=== PATIENT | male | born 1945 | race Caucasian/White ===

== ENCOUNTER 2016-10-16 17:30 | Emergency (ER) | payer MEDICARE, OTHER ==
--- NOTE | 2016-10-16 19:30 | EDM.PDOC ---
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 No history of cardiovascular disease or cerebrovascular disease, last seen in emergency for vertigo over a year ago, no further episodes of that. Was well today has had no recent illness or infection At work he was working on the computer at 3:30 PM when he suddenly became aware that he was having trouble using his left hand. He had to think consciously about pressing keys on the computer such as the tab over the escape T to get his left hand work. Once he was concentrating on he had no problem getting his hand to work. 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 No weakness in the hand, he did not drop anything, there is no numbness. He then noticed that there were some tingling in all the fingers including the thumb. He is right-handed About half an hour later he was on the telephone and he felt that his speech slurring. This lasted about half an hour.however the person he was talking to on the phone didn't say anything. There is no other conversations on the phone or with individuals that he could compare to. However, He "just didn't feel right" but had no nausea or vomiting no headache no vision or hearing changes and did not have any trouble walking. At [address] himself home about 20 minutes. His did not notice anything different in his appearance or his movements. His speech was back to normal by that time and the tingling was just very slight in his hand. He no longer had to think in order to make his hand move. There is no difficulty finding words, no headache, no balance problems, no dizziness. besides his single episode of vertigo last year, he has a history of hypertension for which she is treated and normally under control, and migraines that will present with visual scotomata as part of the aura. If this happens he' ll take aspirin and then he will get a headache. - Related Data Allergies Allergy/AdvReac Type Severity Reaction Status Date / Time No Known Allergies Allergy Verified 04/11/15 22:36 Home Meds: Home Meds Lisinopril/Hydrochlorothiazide [Lisinopril-Hctz 20-25 mg Tab] 0.5 tab PO QAM [History] Omeprazole 20 mg PO QAM 02/24/14 [History] Aspirin 162.5 mg PO QAM 04/01/14 [History] Ranitidine HCl [Zantac] 300 mg PO BEDTIME PRN 03/29/15 [History] Past Medical History HEENT History: Reports: Cataract, Impaired Vision Cardiovascular History: Reports: Hypertension Respiratory History: Reports: None Gastrointestinal History: Reports: GERD Musculoskeletal History: Reports: Fracture Other Musculoskeletal History: craked rib Neurological History: Reports: Seizure - Infectious Disease History Infectious Disease History: Reports: Chicken Pox, Measles - Past Surgical History HEENT Surgical History: Reports: Cataract Surgery Cardiovascular Surgical History: Reports: None Respiratory Surgical History: Reports: None GI Surgical History: Reports: Appendectomy, Cholecystectomy, Colonoscopy Social & Family History - Tobacco Use Smoking Status *Q: Former Smoker Years of Tobacco use: 50 Used Tobacco, but Quit: Yes Month Tobacco Last Used: 2013 Second Hand Smoke Exposure: No - Caffeine Use Caffeine Use: Reports: Coffee, Soda - Alcohol Use Days Per Week of Alcohol Use: 0 - Recreational Drug Use Recreational Drug Use: No - Living Situation & Occupation Living situation: Reports: , with Spouse Occupation: Employed ED ROS GENERAL - Review of Systems Review Of Systems: See Below Constitutional: Reports: Malaise. Denies: Fever, Chills, Weakness, Fatigue, Diaphoresis (I) HEENT: Reports: No Symptoms. Denies: Hearing Loss, Rhinitis, Vision Change Respiratory: Reports: No Symptoms Cardiovascular: Reports: No Symptoms Endocrine: Reports: No Symptoms GI/Abdominal: Reports: No Symptoms : Reports: No Symptoms Musculoskeletal: Reports: No Symptoms Skin: Reports: No Symptoms Neurological: Reports: Tingling (left hand), Trouble Speaking, Change in Speech. Denies: Confusion, Dizziness, Headache, Numbness, Seizure, Syncope, Tremors, Difficulty Walking, Weakness, Gait Disturbance Psychiatric: Reports: No Symptoms Hematologic/Lymphatic: Reports: No Symptoms Immunologic: Reports: No Symptoms ED EXAM, NEURO - Physical Exam Exam: See Below Exam Limited By: No Limitations General Appearance: Alert, No Apparent Distress Eye Exam: Bilateral Eye: EOMI, Normal Inspection Ears: Normal External Exam, Normal Canal, Hearing Grossly Normal Nose: Normal Inspection, Normal Mucosa Throat/Mouth: Normal Inspection, Normal Lips, Normal Teeth, Normal Oropharynx, Normal Voice Head Exam: Atraumatic, Normocephalic Neck: Normal Inspection, Supple, Non-Tender, Full Range of Motion, Other (no carotid bruit) Respiratory/Chest: No Respiratory Distress, Lungs Clear, Normal Breath Sounds, No Accessory Muscle Use Cardiovascular: Normal Peripheral Pulses, Regular Rate, Rhythm, No Murmur GI/Abdominal: Normal Bowel Sounds, Soft, Non-Tender Neurological: Alert, Normal Mood/Affect, Normal Dorsiflexion, CN II-XII Intact, Normal Gait, No Motor/Sensory Deficits, Other (has some difficulty with tandem gait but no problem with heel walking, Romberg negative, no pronator draft, normal reflexes and strength). No: Abnormal Finger to Nose Back Exam: Normal Inspection, Full Range of Motion, Other (straight leg raising 90 bilaterally) Extremities: Normal Inspection, Normal Range of Motion Psychiatric: Normal Affect, Normal Mood Skin Exam: Warm, Dry, Intact, Normal Color, No Rash Course - Vital Signs Last Recorded V/S: Last Vital Signs Temp 35.8 C 10/16/16 19:09 Pulse 62 10/16/16 19:09 Resp 15 10/16/16 19:09 BP 144/90 H 10/16/16 20:40 Pulse Ox 99 10/16/16 19:09 - Orders/Labs/Meds Orders: Active Orders 24 hr Category Date Time Status EKG Documentation Completion [RC] ASDIRECTED Care 10/16/16 19:51 Active Head wo Cont [CT] Stat Exams 10/16/16 19:50 Taken EKG 12 Lead [EK] Routine Ther 10/16/16 19:50 Ordered Labs: Laboratory Tests 10/16/16 10/16/16 Range/Units 20:04 20:04 WBC 12.2 H (4.5-11.0) K/uL RBC 5.57 (4.30-5.90) M/uL Hgb 15.4 H (12.0-15.0) g/dL Hct 45.5 (40.0-54.0) % MCV 82 (80-98) fL MCH 28 (27-31) pg MCHC 34 (32-36) % Plt Count 315 (150-400) K/uL Sodium 142 (140-148) mmol/L Potassium 3.8 (3.6-5.2) mmol/L Chloride 104 (100-108) mmol/L Carbon Dioxide 29 (21-32) mmol/L Anion Gap 9.4 (5.0-14.0) mmol/L BUN 12 (7-18) mg/dL Creatinine 1.4 H (0.8-1.3) mg/dL Est Cr Clr Drug Dosing 50.69 mL/min Estimated GFR (MDRD) 50 L (>60) Glucose 97 (74-106) mg/dL Calcium 8.6 (8.5-10.1) mg/dL Total Bilirubin 0.6 (0.2-1.0) mg/dL AST 21 (15-37) U/L ALT 20 (12-78) U/L Alkaline Phosphatase 60 (46-116) U/L Troponin I < 0.017 (0.000-0.056) ng/mL Total Protein 7.8 (6.4-8.2) g/dL Albumin 3.9 (3.4-5.0) g/dL Globulin 3.9 H (2.3-3.5) g/dL Albumin/Globulin Ratio 1.0 L (1.2-2.2) - Re-Assessments/Exams Free Text/Narrative Re-Assessment/Exam: 10/16/16 19:59 71-year-old male with onset of tingling of the left hand and slurred speech by his report, but but nothing noted by coworkers. The hand symptoms which are just a peripheral neuropathy but the involvement of speech could suggest a central or metabolic problem. If he was having ischemic stroke he would expect difficulty with word finding rather than slurred speech. No evidence of neurological compromiseon exam. Investigations 10/16/16 21:05 EKG is normal as is glucose at 97. 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 This may have been the cause his dizziness last year. Follow-up with primary care is recommended. Consider MRI Continue half aspirin daily Return to emergency if recurrent symptoms Departure - Departure Time of Disposition: 21:06 Disposition: Home, Self-Care 01 Condition: Good Clinical Impression: Paresthesias in left hand, Difficulty with speech - Discharge Information Instructions: Paresthesia, Stroke Prevention Forms: ED Department Discharge Additional Instructions: today you had altered sensation in your left hand and some speech difficulty. No evidence of stroke on examination here CT scan does show an old stroke in the back of the left side of your brain. Please see her physician within the next week. He may decide to do further studies such as an MRI or investigation of your carotid arteries Heart exam including EKG and enzyme level was normal. Continue taking aspirin daily Return to emergency promptly if you develop loss of use of arm or leg, loss of speech or sudden loss of hearing, or severe headache - My Orders Last 24 Hours: My Active Orders 10/16/16 19:50 Head wo Cont [CT] Stat EKG 12 Lead [EK] Routine 10/16/16 19:51 EKG Documentation Completion [RC] ASDIRECTED - Assessment/Plan Last 24 Hours: My Active Orders 10/16/16 19:50 Head wo Cont [CT] Stat EKG 12 Lead [EK] Routine 10/16/16 19:51 EKG Documentation Completion [RC] ASDIRECTED
[2016-10-16 20:49] VITALS: BP 144/90
== END 2016-10-16 21:18 | disposition home or self-care (01) ==
LOC: JP.ED 17:30
DX: R20.9 Unspecified disturbances of skin sensation (principal); R47.81 Slurred speech; I10 Essential (primary) hypertension; K21.9 Gastro-esophageal reflux disease without esophagitis; Z98.49 Cataract extraction status, unspecified eye; Z90.49 Acquired absence of other specified parts of digestive tract; Z79.82 Long term (current) use of aspirin; Z87.891 Personal history of nicotine dependence; Z79.899 Other long term (current) drug therapy
CPT/HCPCS: 36415; 70450; 80053; 84484; 85027; 93005; 93010; 99285; 99285-25

== ENCOUNTER 2017-12-03 06:21 | Day surgery (SDC) | payer MEDICARE, OTHER ==
[2017-12-03] MEDS ORDERED: Lactated Ringers 1,000 ML IV SCH (07:00)
[2017-12-03] MEDS ORDERED: Midazolam 1 MG/ML 2 ML SDV ONE (07:13)
[2017-12-03] MEDS ORDERED: fentaNYL 100 MCG/2 ML SDV ONE (07:13)
[2017-12-03] MEDS ORDERED: Propofol 200 MG/20 ML SDV ONE (07:13)
--- NOTE | 2017-12-03 08:43 | OR ---
DATE OF PROCEDURE: 12/03/2017 PREOPERATIVE DIAGNOSIS: History of adenomatous colon polyps. POSTOPERATIVE DIAGNOSIS: Small colon polyps, cecum, right colon, proximal transverse colon and at 15 cm from the anal verge. PROCEDURE PERFORMED: Colonoscopy to the cecum with biopsy resection of several small colon polyps. ANESTHESIA: IV anesthesia with monitored anesthesia care. INDICATION: This 72-year-old white male is referred for a colonoscopy because of a history of colon polyps. His last colonoscopic exam he says was done 3 years ago. I counseled him for the procedure including risks and alternatives and he gave his informed consent to proceed. DESCRIPTION OF PROCEDURE: The patient was placed in the left lateral decubitus position. IV anesthesia was administered by the Anesthesia Service. Time-out was held. A rectal exam was performed, which was unremarkable. The flexible video Olympus colonoscope was introduced through his anus, up his rectum, and out his colon all the way to the cecum. Once the cecum was reached, the scope was slowly withdrawn, examining the mucosa throughout. We saw a small polyp in the cecum, which did flatten out with insufflation. It was removed with the biopsy forceps. The scope was brought back into the right colon, where another small polyp was seen and removed with the biopsy forceps. In the proximal transverse colon, another small polyp was seen, which was removed with the biopsy forceps. No other lesions were noted until we reached 15 cm from anal verge. Here, another small polyp was seen, which was removed with the biopsy forceps. The scope was brought back into the rectum, where it was retroflexed. The distal rectum appeared unremarkable. The scope was straightened and removed. He tolerated the procedure well. Dejan Gregory MD /[id number]
[2017-12-03 09:18] VITALS: BP 135/85
== END 2017-12-03 09:35 | disposition home or self-care (01) ==
LOC: JP.SDS 06:21
PROVIDERS: ATTEND Surgery
DX: Z12.11 Encounter for screening for malignant neoplasm of colon (principal); D12.2 Benign neoplasm of ascending colon; D12.0 Benign neoplasm of cecum; K63.5 Polyp of colon; I10 Essential (primary) hypertension; F17.200 Nicotine dependence, unspecified, uncomplicated; K21.9 Gastro-esophageal reflux disease without esophagitis; Z86.010 Personal history of colon polyps
CPT/HCPCS: 45380; J2250; J2704; J3010; J7120; 88305

== ENCOUNTER 2020-01-18 01:18 | Inpatient (IN) | payer MEDICARE ==
--- NOTE | 2020-01-18 04:31 | EDM.PDOC ---
ED HPI GENERAL MEDICAL PROBLEM - General Chief Complaint: Back Pain or Injury Stated Complaint: BACK PAIN Time Seen by Provider: 01/18/20 01:40 Source of Information: Reports: Patient, Family History Limitations: Reports: No Limitations - History of Present Illness INITIAL COMMENTS - FREE TEXT/NARRATIVE: 4-year-old male comes in with his from home because well in bed tonight he noted significant muscle spasm and pain in his low back. Apparently caused him to moan with discomfort. He took some Tylenol and that discomfort was largely resolved by the time he got here but was the reason for him to be here. Thinks it is because he has been doing a lot of yard work and recent days if not weeks and perhaps cause musculoskeletal strain of his low back. However he does not have the pain at all when he lays still now and typically has more pain when he moves about. Discussing possible x-rays and imaging for low back issues, he also mentioned that he awakened a couple weeks ago with paresthesias or numbness in both arms transiently which is largely gone away but says he still has some numbness in his right hand. He volunteered that on occasion he gets some numbness in both legs. Also reports a recent return from [facility] where he visited with family. While there he had a dental abscess for which he took amoxicillin and shortly thereafter developed diarrhea which has been persistent since then with at least 2 or more stools daily. No incontinence of stools noted Reports that he is scheduled for colonoscopy this coming Sunday at 6:30 AM because he is due for a colonoscopy. He has not been seen by the person who will do the colonoscopy. He is supposed to get some lab work for another reason soon. disCussed with him the work-up and suggested that I could do laboratory now and save him having to do it later. He also did not want to do a bowel prep for colonoscopy because of the loose stool that he has had recently. I agreed to order outpatient MRIs of the spine and that he probably has degenerative changes in the spine that might explain his paresthesias And while I also did laboratory work to save him the later need. His potassium comes back at 2.3 and his calcium at 5.5. Nurse reports to me that the tech who sherry blood from him when she put the tourniquet on noticed that he had full contractions in his forearm and his hand contracted as if in tetany compatible with hypocalcemic tetany. Middle Back Pain Score (Numeric/FACES): 2 - Related Data Allergies Allergy/AdvReac Type Severity Reaction Status Date / Time No Known Allergies Allergy Verified 01/18/20 01:46 Home Meds: Home Meds Omeprazole 20 mg PO QAM 02/24/14 [History] atorvaSTATin Calcium [Atorvastatin Calcium] 20 mg PO BEDTIME 11/30/17 [History] Aspirin [Halfprin] 81 mg PO DAILY 01/15/20 [History] Lisinopril/Hydrochlorothiazide [Lisinopril-Hctz 10-12.5 mg Tab] 1 each PO DAILY 01/15/20 [History] Naproxen [Naprosyn] 500 mg PO BID PRN 01/15/20 [History] Triamcinolone Acetonide [Kenalog 0.1% Crm] 1 applic TOP BID 01/15/20 [History] Past Medical History HEENT History: Reports: Cataract, Impaired Vision Cardiovascular History: Reports: High Cholesterol, Hypertension Respiratory History: Reports: None Gastrointestinal History: Reports: Chronic Diarrhea, GERD Musculoskeletal History: Reports: Fracture Other Musculoskeletal History: cracked rib Neurological History: Reports: Neuropathy, Peripheral, Seizure, TIA Endocrine/Metabolic History: Reports: Other (See Below) Other Endocrine/Metabolic History: possibly pre-diabetic - Infectious Disease History Infectious Disease History: Reports: Chicken Pox, Measles - Past Surgical History HEENT Surgical History: Reports: Cataract Surgery Cardiovascular Surgical History: Reports: None Respiratory Surgical History: Reports: None GI Surgical History: Reports: Appendectomy, Cholecystectomy, Colonoscopy Social & Family History - Tobacco Use Tobacco Use Status *Q: Former Tobacco User Used Tobacco, but Quit: Yes Month/Year Tobacco Last Used: 15 years ago - Caffeine Use Caffeine Use: Reports: Coffee, Soda - Recreational Drug Use Recreational Drug Use: No - Living Situation & Occupation Living situation: Reports: , with Spouse Occupation: Employed ED ROS GENERAL - Review of Systems Review Of Systems: Comprehensive ROS is negative, except as noted in HPI. Constitutional: Reports: No Symptoms HEENT: Reports: No Symptoms, Other (History of multiple dental extractions) Respiratory: Reports: No Symptoms Cardiovascular: Reports: No Symptoms Endocrine: Reports: No Symptoms GI/Abdominal: Reports: No Symptoms Musculoskeletal: Reports: Other (Seizures in his arms and sometimes legs and muscle spasm in his back) Skin: Reports: No Symptoms Neurological: Reports: No Symptoms, Numbness, Paresthesia ED EXAM,LOWER BACK PAIN/INJURY - Physical Exam Exam: See Below Text/Narrative:: Alert cooperative 74-year-old male lying on the gurney and does not appear to be distressed at all on my initial examination. Head exam is basically normal aside from some missing teeth. No facial droop. Pupils equal round react to light his vision and hearing appears to be okay. Neck is supple normal range of motion chest is clear with a regular rate and rhythm with no abnormal sounds heard abdomen is soft active bowel sounds of an appendectomy scar noted. Extremities appear normal without edema and he has normal range of motion function and sensation with no neurologic deficits. He can stand to do [id number] with reasonably normal gait. Musculoskeletal shows that I can find in his back and feel of his low back where he says he has discomfort but has no findings at the moment. Exam Limited By: No Limitations General Appearance: Alert, WD/WN, No Apparent Distress Course - Vital Signs Text/Narrative:: See the HPI for course describing tetany during the blood draw. His cardiogram appears a regular sinus rhythm without any obvious acute changes. His potassium is 2.3 and his calcium is 5.5 Young agrees to see and consult and treat. He will need replacement for potassium and calcium and further evaluation as to the why of that and possible MRI of his back although the muscle pain that he describes may be secondary to low calcium Last Recorded V/S: Last Vital Signs Temp 37.6 C 01/18/20 08:00 Pulse 87 01/18/20 04:26 Resp 14 01/18/20 10:00 BP 152/85 H 01/18/20 10:00 Pulse Ox 95 01/18/20 10:00 - Orders/Labs/Meds Orders: Active Orders 24 hr Category Date Time Status CALCIUM [CHEM] Routine Lab 01/18/20 12:00 Ordered CLOS DIFFICILE PCR W/REFLEX [RM] Stat Lab 01/18/20 03:22 Results CLOSTRIDIUM DIFFICILE TOXIN [RM] Stat Lab 01/18/20 03:22 Results PTH, INTACT Stat Lab 01/18/20 05:17 Received TSH+THYABS Stat Lab 01/18/20 05:17 Received Medication Orders Acetaminophen (Tylenol) 650 mg PO Q4H PRN PRN Reason: Pain (Mild 1-3)/fever Last Admin: 01/18/20 10:28 Dose: 650 mg Documented by: NACHO Enoxaparin Sodium (Lovenox) 40 mg SUBCUT DAILY [facility] Last Admin: 01/18/20 09:05 Dose: 40 mg Documented by: NACHO Hydrochlorothiazide (Hydrochlorothiazide) 12.5 mg PO DAILY [facility] Last Admin: 01/18/20 09:05 Dose: Not Given Documented by: NACHO Lisinopril (Prinivil) 10 mg PO DAILY [facility] Last Admin: 01/18/20 09:04 Dose: 10 mg Documented by: NACHO Ondansetron HCl (Zofran Odt) 4 mg PO Q6H PRN PRN Reason: Nausea able to take PO Ondansetron HCl (Zofran) 4 mg IV Q6H PRN PRN Reason: Nausea/Vomiting Labs: Laboratory Tests 01/18/20 01/18/20 01/18/20 Range/Units 03:32 03:32 03:32 WBC 26.3 H (4.5-11.0) K/uL RBC 5.28 (4.30-5.90) M/uL Hgb 13.7 (12.0-15.0) g/dL Hct 42.1 (40.0-54.0) % MCV 80 (80-98) fL MCH 26 L (27-31) pg MCHC 33 (32-36) % Plt Count 444 H (150-400) K/uL PT 12.8 H (9.5-12.0) sec INR 1.18 (0.80-1.20) Sodium 141 (140-148) mmol/L Potassium 2.3 L* (3.6-5.2) mmol/L Chloride 96 L (100-108) mmol/L Carbon Dioxide 31 (21-32) mmol/L Anion Gap 16.3 H (5.0-14.0) mmol/L BUN 18 (7-18) mg/dL Creatinine 1.4 H (0.8-1.3) mg/dL Est Cr Clr Drug Dosing 50.05 mL/min Estimated GFR (MDRD) 50 L (>60) Glucose 125 H (74-106) mg/dL Calcium 5.5 L* D (8.5-10.1) mg/dL Magnesium (1.8-2.4) mg/dL Total Bilirubin 0.8 (0.2-1.0) mg/dL AST 26 (15-37) U/L ALT 14 (12-78) U/L Alkaline Phosphatase 76 (46-116) U/L C-Reactive Protein 11.75 H (0.0-0.3) mg/dL Total Protein 7.2 (6.4-8.2) g/dL Albumin 2.8 L (3.4-5.0) g/dL Globulin 4.4 H (2.3-3.5) g/dL Albumin/Globulin Ratio 0.6 L (1.2-2.2) TSH, Ultra Sensitive (0.358-3.740) uIU/mL Ethyl Alcohol mg/dL 01/18/20 01/18/20 01/18/20 Range/Units 03:32 03:32 04:54 WBC (4.5-11.0) K/uL RBC (4.30-5.90) M/uL Hgb (12.0-15.0) g/dL Hct (40.0-54.0) % MCV (80-98) fL MCH (27-31) pg MCHC (32-36) % Plt Count (150-400) K/uL PT (9.5-12.0) sec INR (0.80-1.20) Sodium (140-148) mmol/L Potassium (3.6-5.2) mmol/L Chloride (100-108) mmol/L Carbon Dioxide (21-32) mmol/L Anion Gap (5.0-14.0) mmol/L BUN (7-18) mg/dL Creatinine (0.8-1.3) mg/dL Est Cr Clr Drug Dosing mL/min Estimated GFR (MDRD) (>60) Glucose (74-106) mg/dL Calcium (8.5-10.1) mg/dL Magnesium 0.7 L (1.8-2.4) mg/dL Total Bilirubin (0.2-1.0) mg/dL AST (15-37) U/L ALT (12-78) U/L Alkaline Phosphatase (46-116) U/L C-Reactive Protein (0.0-0.3) mg/dL Total Protein (6.4-8.2) g/dL Albumin (3.4-5.0) g/dL Globulin (2.3-3.5) g/dL Albumin/Globulin Ratio (1.2-2.2) TSH, Ultra Sensitive 1.771 (0.358-3.740) uIU/mL Ethyl Alcohol 3 mg/dL Meds: Medications Generic Name Dose Route Start Last Admin Trade Name Ayla PRN Reason Stop Dose Admin Acetaminophen 650 mg 01/18/20 04:57 01/18/20 10:28 Tylenol PO 650 mg Q4H PRN Administration Pain (Mild 1-3)/fever Enoxaparin Sodium 40 mg 01/18/20 09:00 01/18/20 09:05 Lovenox SUBCUT 40 mg DAILY [facility] Administration Hydrochlorothiazide 12.5 mg 01/18/20 09:00 01/18/20 09:05 Hydrochlorothiazide PO Not Given DAILY [facility] Lisinopril 10 mg 01/18/20 09:00 01/18/20 09:04 Prinivil PO 10 mg DAILY [facility] Administration Ondansetron HCl 4 mg 01/18/20 04:57 Zofran Odt PO Q6H PRN Nausea able to take PO Ondansetron HCl 4 mg 01/18/20 04:57 Zofran IV Q6H PRN Nausea/Vomiting Discontinued Medications Generic Name Dose Route Start Last Admin Trade Name Ayla PRN Reason Stop Dose Admin Calcium Gluconate Confirm 01/18/20 05:41 01/18/20 05:52 Calcium Gluconate Administered 01/18/20 05:42 Not Given Dose 1 gm .ROUTE .STK-MED ONE Calcium Gluconate 2 gm/ Sodium 120 mls @ 100 mls/hr 01/18/20 05:24 01/18/20 05:57 Chloride IV 01/18/20 06:35 100 mls/hr ONETIME ONE Administration Potassium Chloride 20 meq/ 100 mls @ 50 mls/hr 01/18/20 05:25 01/18/20 05:58 Premix IV 01/18/20 07:24 50 mls/hr ONETIME ONE Administration Lidocaine HCl 2 ml 01/18/20 05:29 01/18/20 06:08 Xylocaine-Mpf 1% INJECT 01/18/20 05:30 2 ml ONETIME ONE Administration Lidocaine HCl Confirm 01/18/20 05:55 01/18/20 06:36 Xylocaine-Mpf 1% Administered 01/18/20 05:56 Not Given Dose 5 ml .ROUTE .STK-MED ONE Departure - Departure Time of Disposition: 05:21 Disposition: Admitted As Inpatient 67 Condition: Good Clinical Impression: Hypokalemia, Tetany - Discharge Information Sepsis Event Note (ED) - Evaluation Sepsis Screening Result: No Definite Risk - Focused Exam Vital Signs: Vital Signs Temp Pulse Resp BP Pulse Ox 01/18/20 04:26 87 16 142/78 H 96 01/18/20 02:32 37.7 C 110 H 18 158/89 H 96 01/18/20 02:10 37.7 C 110 H 18 158/89 H 96 - My Orders Last 24 Hours: My Active Orders 01/18/20 03:22 CLOS DIFFICILE PCR W/REFLEX [RM] Stat CLOSTRIDIUM DIFFICILE TOXIN [RM] Stat - Assessment/Plan Last 24 Hours: My Active Orders 01/18/20 03:22 CLOS DIFFICILE PCR W/REFLEX [RM] Stat CLOSTRIDIUM DIFFICILE TOXIN [RM] Stat
[2020-01-18] MEDS ORDERED: Ondansetron 4 MG Tab.DIS PO PRN (04:57)
[2020-01-18] MEDS ORDERED: Ondansetron 4 MG/2 ML SDV IV PRN (04:57)
--- NOTE | 2020-01-18 05:11 | PCM.HP.2 ---
H&P History of Present Illness - General Date of Service: 01/18/20 Admit Problem/Dx: Admission Problem List: 1. Hypokalemia 2. Hypocalcemia 3. Hypocalcemic tetany 4. Diarrhea - etiology not known 5. Low thoracic back pain Source of Information: Patient, Family History Limitations: Reports: No Limitations. Denies: Altered Mental Status - History of Present Illness Initial Comments - Free Text/Narative: Marcello Daley is a 74 yo male admitted to [facility] on 18 January 2020 around 0430. The patient initially presented with significant low thoracic back pain that was associated with some paresthesias into the bilateral lower extremities. The patient had noted this pain for about 4 days or so. He attributed this to clearing leaves in the back yard. The patient came to the ED this evening because the pain had become unbearable. In the course of his evaluation the ED attending noted that the patient was scheduled for a colonoscopy on [address] Freitas, but labs pre-procedure, had yet to be done. The patient had a CBC and chemistry performed. The CBC revealed a WBC of 26k, the chemistries showed a profound hypokalemia and hypocalcemia. RN's in the ED doing the lab draw noted tetanic activity with the placement of the tourniquet for phlebotomy. The patient, for his part, is stable and not noticing any chest pain, fluttering, dysrhythmia, or other symptoms. He is otherwise noting 1-2 episodes of diarrheal stools without blood or melena. The patient's musculoskeletal symptoms seem to have cleared as well. Otherwise the patient is stable and denies any other concerns. He is a [employer] and his is his medical decision maker. Middle Back Pain Score (Numeric/FACES): 2 - Related Data Allergies/Adverse Reactions: Allergies Allergy/AdvReac Type Severity Reaction Status Date / Time No Known Allergies Allergy Verified 01/18/20 01:46 Home Medications: Home Meds Omeprazole 20 mg PO QAM 02/24/14 [History] atorvaSTATin Calcium [Atorvastatin Calcium] 20 mg PO BEDTIME 11/30/17 [History] Aspirin [Halfprin] 81 mg PO DAILY 01/15/20 [History] Lisinopril/Hydrochlorothiazide [Lisinopril-Hctz 10-12.5 mg Tab] 1 each PO DAILY 01/15/20 [History] Naproxen [Naprosyn] 500 mg PO BID 01/15/20 [History] Triamcinolone Acetonide [Kenalog 0.1% Crm] 1 applic TOP BID 01/15/20 [History] Past Medical History HEENT History: Reports: Cataract, Impaired Vision Cardiovascular History: Reports: High Cholesterol, Hypertension Respiratory History: Reports: None Gastrointestinal History: Reports: Chronic Diarrhea, GERD Musculoskeletal History: Reports: Fracture Other Musculoskeletal History: cracked rib Neurological History: Reports: Neuropathy, Peripheral, Seizure, TIA Endocrine/Metabolic History: Reports: Other (See Below) Other Endocrine/Metabolic History: possibly pre-diabetic - Infectious Disease History Infectious Disease History: Reports: Chicken Pox, Measles - Past Surgical History HEENT Surgical History: Reports: Cataract Surgery Cardiovascular Surgical History: Reports: None Respiratory Surgical History: Reports: None GI Surgical History: Reports: Appendectomy, Cholecystectomy, Colonoscopy Social & Family History - Tobacco Use Tobacco Use Status *Q: Former Tobacco User Used Tobacco, but Quit: Yes Month/Year Tobacco Last Used: 15 years ago - Caffeine Use Caffeine Use: Reports: Coffee, Soda - Recreational Drug Use Recreational Drug Use: No - Living Situation & Occupation Living situation: Reports: , with Spouse Occupation: Employed H&P Review of Systems - Review of Systems: Review Of Systems: See Below General: Reports: No Symptoms HEENT: Reports: No Symptoms Pulmonary: Reports: No Symptoms Cardiovascular: Reports: No Symptoms Gastrointestinal: Reports: Diarrhea, Decreased Appetite Musculoskeletal: Reports: No Symptoms, Back Pain Skin: Reports: No Symptoms Psychiatric: Reports: No Symptoms Exam - Exam Exam: See Below - Vital Signs Vital Signs: Last Vital Signs Temp 100 F 01/18/20 02:32 Pulse 87 01/18/20 04:26 Resp 16 01/18/20 04:26 BP 142/78 H 01/18/20 04:26 Pulse Ox 96 01/18/20 04:26 Weight: 175 lb 11.335 oz - Exam Quality Assessment: DVT Prophylaxis. No: Supplemental Oxygen General: Alert, Oriented, Cooperative HEENT: PERRLA, Conjunctiva Clear, EOMI, Pupils Equal Lungs: Clear to Auscultation, Normal Respiratory Effort Cardiovascular: Regular Rate, Regular Rhythm, Normal S1, Normal S2 GI/Abdominal Exam: Normal Bowel Sounds, Soft, Non-Tender, No Organomegaly, No Distention, No Abnormal Bruit, No Mass Back Exam: Normal Inspection, Full Range of Motion. No: Decreased Range of Motion Extremities: Normal Inspection, Normal Range of Motion, Non-Tender, No Pedal Edema, Normal Capillary Refill. No: Pedal Edema Peripheral Pulses: 4+: Radial (L), Radial (R), Posterior Tibial (L), Posterior T ibial (R), Dorsalis Pedis (L), Dorsalis Pedis (R) Skin: Warm, Dry, Intact Neurological: Cranial Nerves Intact, Reflexes Equal Bilateral, Strength Equal Bilateral, Normal Gait, Normal Speech, Normal Tone Neuro Extensive - Mental Status: Alert, Oriented x3, Normal Mood/Affect, Normal Cognition, Memory Intact Neuro Extensive - Motor, Sensory, Reflexes: CN II-XII Intact, Normal Gait, Normal Reflexes DTR: 2+: Patella (L), Patella (R) Psychiatric: Alert, Normal Affect, Normal Mood - Patient Data Lab Results Last 24 hrs: Laboratory Results - last 24 hr 01/18/20 01/18/20 01/18/20 Range/Units 03:32 03:32 03:32 WBC 26.3 H (4.5-11.0) K/uL RBC 5.28 (4.30-5.90) M/uL Hgb 13.7 (12.0-15.0) g/dL Hct 42.1 (40.0-54.0) % MCV 80 (80-98) fL MCH 26 L (27-31) pg MCHC 33 (32-36) % Plt Count 444 H (150-400) K/uL PT 12.8 H (9.5-12.0) sec INR 1.18 (0.80-1.20) Sodium 141 (140-148) mmol/L Potassium 2.3 L* (3.6-5.2) mmol/L Chloride 96 L (100-108) mmol/L Carbon Dioxide 31 (21-32) mmol/L Anion Gap 16.3 H (5.0-14.0) mmol/L BUN 18 (7-18) mg/dL Creatinine 1.4 H (0.8-1.3) mg/dL Est Cr Clr Drug Dosing 50.05 mL/min Estimated GFR (MDRD) 50 L (>60) Glucose 125 H (74-106) mg/dL Calcium 5.5 L* D (8.5-10.1) mg/dL Total Bilirubin 0.8 (0.2-1.0) mg/dL AST 26 (15-37) U/L ALT 14 (12-78) U/L Alkaline Phosphatase 76 (46-116) U/L C-Reactive Protein 11.75 H (0.0-0.3) mg/dL Total Protein 7.2 (6.4-8.2) g/dL Albumin 2.8 L (3.4-5.0) g/dL Globulin 4.4 H (2.3-3.5) g/dL Albumin/Globulin Ratio 0.6 L (1.2-2.2) Result Diagrams: 01/18/20 03:32 01/18/20 03:32 Sepsis Event Note - Evaluation Sepsis Screening Result: No Definite Risk - Focused Exam Vital Signs: Vital Signs Temp Pulse Resp BP Pulse Ox 01/18/20 04:26 87 16 142/78 H 96 01/18/20 02:32 100 F 110 H 18 158/89 H 96 01/18/20 02:10 100 F 110 H 18 158/89 H 96 Problem List Initiated/Reviewed/Updated: Yes Orders Last 24hrs: Active Orders 24 hr Category Date Time Status Patient Status [ADT] Routine ADT 01/18/20 04:57 Ordered Ambulate [RC] QID Care 01/18/20 04:57 Ordered Oxygen Therapy [RC] PRN Care 01/18/20 04:57 Ordered Pulse Oximetry [RC] CONTINUOUS Care 01/18/20 04:58 Ordered Up to Chair [RC] QID Care 01/18/20 04:57 Ordered VTE/DVT Education [RC] Per Unit Routine Care 01/18/20 04:57 Ordered Vital Signs [RC] Q4H Care 01/18/20 04:57 Ordered Regular Diet [DIET] Diet 01/18/20 Breakfast Ordered CALCIUM [CHEM] Timed Lab 01/18/20 12:00 Ordered CALCIUM, IONIZED, SERUM Routine Lab 01/18/20 12:00 Ordered CALCIUM, IONIZED, SERUM Stat Lab 01/18/20 04:54 Ordered CBC WITH AUTO DIFF [HEME] DAILY Lab 01/19/20 05:00 Ordered CBC WITH AUTO DIFF [HEME] DAILY Lab 01/20/20 05:00 Ordered CBC WITH AUTO DIFF [HEME] DAILY Lab 01/21/20 05:00 Ordered CBC WITH AUTO DIFF [HEME] DAILY Lab 01/22/20 05:00 Ordered CLOS DIFFICILE PCR W/REFLEX [RM] Stat Lab 01/18/20 03:22 Ordered CLOS DIFFICILE PCR W/REFLEX [RM] Stat Lab 01/18/20 05:01 Ordered COMPREHENSIVE METABOLIC PN,CMP [CHEM] DAILY Lab 01/19/20 05:00 Ordered COMPREHENSIVE METABOLIC PN,CMP [CHEM] DAILY Lab 01/20/20 05:00 Ordered COMPREHENSIVE METABOLIC PN,CMP [CHEM] DAILY Lab 01/21/20 05:00 Ordered COMPREHENSIVE METABOLIC PN,CMP [CHEM] DAILY Lab 01/22/20 05:00 Ordered CULTURE STOOL + SHIGATOX [RM] Stat Lab 01/18/20 05:01 Ordered H. PYLORI STOOL AG, EIA Stat Lab 01/18/20 05:01 Ordered OVA + PARASITE EXAM Stat Lab 01/18/20 05:01 Ordered POTASSIUM,K [CHEM] Timed Lab 01/18/20 12:00 Ordered PTH, INTACT Stat Lab 01/18/20 04:54 Ordered TSH ULTRASENSITIVE [CHEM] Stat Lab 01/18/20 04:54 Ordered TSH+THYABS Stat Lab 01/18/20 04:54 Ordered WBC, STOOL [OP] Stat Lab 01/18/20 05:01 Ordered Acetaminophen [TylenoL] Med 01/18/20 04:57 Ordered 650 mg PO Q4H PRN Enoxaparin [Lovenox] Med 01/18/20 09:00 Ordered 40 mg SUBCUT DAILY Lisinopril/Hydrochlorothiazide [Lisinopril-Hctz 10-12.5 Med 01/18/20 09:00 Ordered mg Tab] 1 each PO DAILY Ondansetron [Zofran ODT] Med 01/18/20 04:57 Ordered 4 mg PO Q6H PRN Ondansetron [Zofran] Med 01/18/20 04:57 Ordered 4 mg IV Q6H PRN Resuscitation Status Routine Resus Stat 01/18/20 04:57 Ordered Medication Orders Acetaminophen (Tylenol) 650 mg PO Q4H PRN PRN Reason: Pain (Mild 1-3)/fever Enoxaparin Sodium (Lovenox) 40 mg SUBCUT DAILY [facility] Non-Formulary Medication (Lisinopril/Hydrochlorothiazide [Lisinopril-Hctz 10- 12.5 Mg Tab]) 1 each PO DAILY [facility] Ondansetron HCl (Zofran Odt) 4 mg PO Q6H PRN PRN Reason: Nausea able to take PO Ondansetron HCl (Zofran) 4 mg IV Q6H PRN PRN Reason: Nausea/Vomiting Assessment/Plan Comment:: ASSESSMENT AND PLAN: 1. HEENT No active issues at this time 2. Cardiac Patient is profoundly hypokalemic and hypocalcemic EKG is reviewed and there are no acute ST segment changes -Correct electrolytes -Telemetry monitoring -ICU placement for now 3. Respiratory Stable, no symptoms of COVID 19, no need for supplemental oxygen at present time 4. Renal Creatinine is stable despite other electrolyte abnormalities 5. Electrolytes/Fluids Hold IVF for now Hypokalemia - Replace potassium orally as long as tolerated - IV potassium as well - Serial potassium labs Hypocalcemia Etiology of this is not known and given the leukocytosis that seems disproportionately elevated given the patient's symptoms, I am concerned about the cause of this. I would wonder about PTH or malignancy as cause - Serial Ca and iCa levels - Replacement of calcium as appropriate - Telemetry monitoring - PTH, TSH levels - MRI C, T, L spine - MRI brain 6. Gastrointestinal Has had diarrheal illness x 2 wks. Volume is not huge 1-2 episodes/day - Check C difficile - Check stool culture/enteric pathogen screen - Check ova/parasite - Regular diet for now if tolerated - Hold on additional antidiarrheals until C difficile back 7. Neuromusculoskeletal Patient reportedly having intermittent paresthesias and tremor c/w hypocalcemic tetani - Replace electrolytes as above - PT to evaluate - Pain control as appropriate 8. Infectious Disease/Heme Patient has markedly elevated leukocytosis. I am unclear as to the reason for this given no fever and an overall non-toxic appearance to the patient. I would be concerned about a hematologic malignancy given the presentation overall - Check peripheral smear TRISTON - Follow 9. Mental Health/Psychiatric No active concerns or issues DISPOSITION: Pending but anticipating 2-4 day stay HOSPITALIST: Gunner Brady M.D. 18 January 2020, 0523 hrs
[2020-01-18] MEDS ORDERED: Calcium Gluconate 2 GM in Sodium Chloride 0.9% 100 ML IV ONE ×2 (05:24→13:30)
[2020-01-18] MEDS ORDERED: Potassium Chloride 20 MEQ in Premix Bag 1 BAG IV ONE (05:25)
[2020-01-18] MEDS ORDERED: Calcium Gluconate 10% 1 GM/10 ML SDV ONE (05:41)
[2020-01-18] MEDS: Lisinopril 10 MG Tab PO SCH (09:04)
[2020-01-18] MEDS: Hydrochlorothiazide 12.5 MG Cap PO SCH (09:05)
[2020-01-18] MEDS: Enoxaparin 40 MG/0.4 ML Syringe SUBCUT SCH (09:05)
[2020-01-18] MEDS: Acetaminophen 325 MG Tab PO PRN (10:28)
[2020-01-18] MEDS: Vancomycin 250 MG/5 ML ML Oral Solution PO SCH ×3 (11:31→22:09)
--- NOTE | 2020-01-18 12:46 | PCM.PN ---
- General Info Date of Service: 01/18/20 Admission Dx/Problem (Free Text): 1. C difficile colitis 2. Hypokalemia 3. Hypocalcemia 4. Low thoracic back pain Subjective Update: Patient admitted this AM for hypocalcemia, hypokalemia. Noted now to have C difficile colitis No other concerns and patient states he is well. Functional Status: Reports: Pain Controlled - Review of Systems General: Reports: No Symptoms HEENT: Reports: No Symptoms Pulmonary: Reports: No Symptoms Cardiovascular: Reports: No Symptoms Gastrointestinal: Reports: Abdominal Pain, Diarrhea Musculoskeletal: Reports: No Symptoms - Patient Data Vitals - Most Recent: Last Vital Signs Temp 97.9 F 01/18/20 12:00 Pulse 87 01/18/20 04:26 Resp 17 01/18/20 12:00 BP 131/76 01/18/20 12:00 Pulse Ox 95 01/18/20 12:00 Weight - Most Recent: 173 lb 8 oz I&O - Last 24 Hours: Intake & Output 01/17/20 01/18/20 01/18/20 22:59 06:59 14:59 Intake Total 220 Balance 220 Lab Results Last 24 Hours: Laboratory Results - last 24 hr 01/18/20 01/18/20 01/18/20 Range/Units 03:32 03:32 03:32 WBC 26.3 H (4.5-11.0) K/uL RBC 5.28 (4.30-5.90) M/uL Hgb 13.7 (12.0-15.0) g/dL Hct 42.1 (40.0-54.0) % MCV 80 (80-98) fL MCH 26 L (27-31) pg MCHC 33 (32-36) % Plt Count 444 H (150-400) K/uL PT 12.8 H (9.5-12.0) sec INR 1.18 (0.80-1.20) Sodium 141 (140-148) mmol/L Potassium 2.3 L* (3.6-5.2) mmol/L Chloride 96 L (100-108) mmol/L Carbon Dioxide 31 (21-32) mmol/L Anion Gap 16.3 H (5.0-14.0) mmol/L BUN 18 (7-18) mg/dL Creatinine 1.4 H (0.8-1.3) mg/dL Est Cr Clr Drug Dosing 50.05 mL/min Estimated GFR (MDRD) 50 L (>60) Glucose 125 H (74-106) mg/dL Calcium 5.5 L* D (8.5-10.1) mg/dL POC WB Ioniz Calcium (1.12-1.32) mmol/L Magnesium (1.8-2.4) mg/dL Total Bilirubin 0.8 (0.2-1.0) mg/dL AST 26 (15-37) U/L ALT 14 (12-78) U/L Alkaline Phosphatase 76 (46-116) U/L C-Reactive Protein 11.75 H (0.0-0.3) mg/dL Total Protein 7.2 (6.4-8.2) g/dL Albumin 2.8 L (3.4-5.0) g/dL Globulin 4.4 H (2.3-3.5) g/dL Albumin/Globulin Ratio 0.6 L (1.2-2.2) TSH, Ultra Sensitive (0.358-3.740) uIU/mL Ethyl Alcohol mg/dL 01/18/20 01/18/20 01/18/20 Range/Units 03:32 03:32 04:54 WBC (4.5-11.0) K/uL RBC (4.30-5.90) M/uL Hgb (12.0-15.0) g/dL Hct (40.0-54.0) % MCV (80-98) fL MCH (27-31) pg MCHC (32-36) % Plt Count (150-400) K/uL PT (9.5-12.0) sec INR (0.80-1.20) Sodium (140-148) mmol/L Potassium (3.6-5.2) mmol/L Chloride (100-108) mmol/L Carbon Dioxide (21-32) mmol/L Anion Gap (5.0-14.0) mmol/L BUN (7-18) mg/dL Creatinine (0.8-1.3) mg/dL Est Cr Clr Drug Dosing mL/min Estimated GFR (MDRD) (>60) Glucose (74-106) mg/dL Calcium (8.5-10.1) mg/dL POC WB Ioniz Calcium (1.12-1.32) mmol/L Magnesium 0.7 L (1.8-2.4) mg/dL Total Bilirubin (0.2-1.0) mg/dL AST (15-37) U/L ALT (12-78) U/L Alkaline Phosphatase (46-116) U/L C-Reactive Protein (0.0-0.3) mg/dL Total Protein (6.4-8.2) g/dL Albumin (3.4-5.0) g/dL Globulin (2.3-3.5) g/dL Albumin/Globulin Ratio (1.2-2.2) TSH, Ultra Sensitive 1.771 (0.358-3.740) uIU/mL Ethyl Alcohol 3 mg/dL 01/18/20 01/18/20 01/18/20 Range/Units 05:19 12:00 12:00 WBC (4.5-11.0) K/uL RBC (4.30-5.90) M/uL Hgb (12.0-15.0) g/dL Hct (40.0-54.0) % MCV (80-98) fL MCH (27-31) pg MCHC (32-36) % Plt Count (150-400) K/uL PT (9.5-12.0) sec INR (0.80-1.20) Sodium (140-148) mmol/L Potassium 2.1 L* (3.6-5.2) mmol/L Chloride (100-108) mmol/L Carbon Dioxide (21-32) mmol/L Anion Gap (5.0-14.0) mmol/L BUN (7-18) mg/dL Creatinine (0.8-1.3) mg/dL Est Cr Clr Drug Dosing mL/min Estimated GFR (MDRD) (>60) Glucose (74-106) mg/dL Calcium 5.6 L* (8.5-10.1) mg/dL POC WB Ioniz Calcium 0.64 L* 0.70 L* (1.12-1.32) mmol/L Magnesium (1.8-2.4) mg/dL Total Bilirubin (0.2-1.0) mg/dL AST (15-37) U/L ALT (12-78) U/L Alkaline Phosphatase (46-116) U/L C-Reactive Protein (0.0-0.3) mg/dL Total Protein (6.4-8.2) g/dL Albumin (3.4-5.0) g/dL Globulin (2.3-3.5) g/dL Albumin/Globulin Ratio (1.2-2.2) TSH, Ultra Sensitive (0.358-3.740) uIU/mL Ethyl Alcohol mg/dL Juliocesar Results Last 24 Hours: Microbiology 01/18/20 03:22 Clostridioides difficile Toxin Assay - Final Stool / Feces Clostridioides difficile (PCR) - Final 01/18/20 05:01 Stool for WBCs - Final Stool / Feces NO WBC SEEN REFERENCE RANGE: NO WBC SEEN Med Orders - Current: Current Medications Acetaminophen (Tylenol) 650 mg PO Q4H PRN PRN Reason: Pain (Mild 1-3)/fever Last Admin: 01/18/20 10:28 Dose: 650 mg Documented by: Enoxaparin Sodium (Lovenox) 40 mg SUBCUT DAILY [facility] Last Admin: 01/18/20 09:05 Dose: 40 mg Documented by: Hydrochlorothiazide (Hydrochlorothiazide) 12.5 mg PO DAILY [facility] Last Admin: 01/18/20 09:05 Dose: Not Given Documented by: Calcium Gluconate 2 gm/ Sodium (Chloride) 120 mls @ 100 mls/hr IV ONETIME ONE Stop: 01/18/20 13:43 Potassium Chloride/Sodium Chloride (Normal Saline With 20 Meq Kcl) 1,000 mls @ 100 mls/hr IV ASDIRECTED [facility] Lisinopril (Prinivil) 10 mg PO DAILY [facility] Last Admin: 01/18/20 09:04 Dose: 10 mg Documented by: Ondansetron HCl (Zofran Odt) 4 mg PO Q6H PRN PRN Reason: Nausea able to take PO Ondansetron HCl (Zofran) 4 mg IV Q6H PRN PRN Reason: Nausea/Vomiting Vancomycin HCl (Vancocin 250 Mg/5 Ml Soln) 125 mg PO QID [facility] Last Admin: 01/18/20 11:31 Dose: 125 mg Documented by: Discontinued Medications Calcium Gluconate (Calcium Gluconate) Confirm Administered Dose 1 gm .ROUTE .STK-MED ONE Stop: 01/18/20 05:42 Last Admin: 01/18/20 05:52 Dose: Not Given Documented by: Calcium Gluconate 2 gm/ Sodium (Chloride) 120 mls @ 100 mls/hr IV ONETIME ONE Stop: 01/18/20 06:35 Last Admin: 01/18/20 05:57 Dose: 100 mls/hr Documented by: Potassium Chloride 20 meq/ (Premix) 100 mls @ 50 mls/hr IV ONETIME ONE Stop: 01/18/20 07:24 Last Admin: 01/18/20 05:58 Dose: 50 mls/hr Documented by: Lidocaine HCl (Xylocaine-Mpf 1%) 2 ml INJECT ONETIME ONE Stop: 01/18/20 05:30 Last Admin: 01/18/20 06:08 Dose: 2 ml Documented by: Lidocaine HCl (Xylocaine-Mpf 1%) Confirm Administered Dose 5 ml .ROUTE .STK-MED ONE Stop: 01/18/20 05:56 Last Admin: 01/18/20 06:36 Dose: Not Given Documented by: - Exam Quality Assessment: DVT Prophylaxis General: Alert, Oriented, Cooperative, No Acute Distress Lungs: Clear to Auscultation, Normal Respiratory Effort Cardiovascular: Regular Rate, Regular Rhythm, No Murmurs GI/Abdominal Exam: Normal Bowel Sounds, Soft, Non-Tender, No Distention, No Abnormal Bruit, No Mass Sepsis Event Note - Evaluation Sepsis Screening Result: No Definite Risk - Focused Exam Vital Signs: Vital Signs Temp Pulse Resp BP BP Pulse Ox 01/18/20 12:00 97.9 F 17 131/76 95 01/18/20 10:00 14 152/85 H 95 01/18/20 09:04 156/78 H 01/18/20 08:00 99.6 F 18 112/79 93 L 01/18/20 05:53 95 01/18/20 05:24 98.4 F 16 162/86 H 95 01/18/20 04:26 87 16 142/78 H 96 01/18/20 02:32 100 F 110 H 18 158/89 H 96 01/18/20 02:10 100 F 110 H 18 158/89 H 96 - Problem List Review Problem List Initiated/Reviewed/Updated: Yes - My Orders Last 24 Hours: My Active Orders 01/18/20 04:30 HEMATOPATH CONSULTATION, SMEAR Stat 01/18/20 04:57 Patient Status [ADT] Routine Ambulate [RC] QID Oxygen Therapy [RC] PRN Up to Chair [RC] QID VTE/DVT Education [RC] Per Unit Routine Vital Signs [RC] Q2H Acetaminophen [TylenoL] 650 mg PO Q4H PRN Ondansetron [Zofran ODT] 4 mg PO Q6H PRN Ondansetron [Zofran] 4 mg IV Q6H PRN Resuscitation Status Routine 01/18/20 04:58 Pulse Oximetry [RC] CONTINUOUS 01/18/20 05:01 CULTURE STOOL + SHIGATOX [RM] Stat H. PYLORI STOOL AG, EIA Stat OVA + PARASITE EXAM Stat 01/18/20 05:17 PTH, INTACT Stat TSH+THYABS Stat 01/18/20 Breakfast Regular Diet [DIET] 01/18/20 09:00 Enoxaparin [Lovenox] 40 mg SUBCUT DAILY 01/18/20 11:30 Vancomycin [Vancocin 250 MG/5 ML Soln] 125 mg PO QID 01/18/20 12:32 Calcium Gluconate 2 gm Sodium Chloride 0.9% [Normal Saline] 100 ml IV ONETIME 01/18/20 12:45 NS + KCl 20mEq/L [Normal Saline with 20 mEq KCl] 1,000 ml IV ASDIRECTED 01/19/20 05:00 CBC WITH AUTO DIFF [HEME] DAILY COMPREHENSIVE METABOLIC PN,CMP [CHEM] DAILY 01/19/20 07:00 Brain w wo Cont [MR] Stat Cervical Spine Comp w wo Cont [MR] Stat Lumbar Spine Comp w wo Cont [MR] Stat Thoracic Spine Comp w wo Cont [MR] Stat 01/20/20 05:00 CBC WITH AUTO DIFF [HEME] DAILY COMPREHENSIVE METABOLIC PN,CMP [CHEM] DAILY 01/21/20 05:00 CBC WITH AUTO DIFF [HEME] DAILY COMPREHENSIVE METABOLIC PN,CMP [CHEM] DAILY 01/22/20 05:00 CBC WITH AUTO DIFF [HEME] DAILY COMPREHENSIVE METABOLIC PN,CMP [CHEM] DAILY - Plan Plan:: ASSESSMENT AND PLAN: 1. HEENT No active issues at this time 2. Cardiac Patient is profoundly hypokalemic and hypocalcemic EKG is reviewed and there are no acute ST segment changes -Correct electrolytes -Telemetry monitoring -ICU placement for now 3. Respiratory Stable, no symptoms of COVID 19, no need for supplemental oxygen at present time 4. Renal Creatinine is stable despite other electrolyte abnormalities 5. Electrolytes/Fluids Hold IVF for now Hypokalemia - Replace potassium orally as long as tolerated - Starting 0.9% NS w/ 20 mEq of KCl at 100 mL/hr - Serial potassium labs Hypocalcemia Etiology of this is not known and given the leukocytosis that seems dispropo rtionately elevated given the patient's symptoms, I am concerned about the cause of this. I would wonder about PTH or malignancy as cause - Serial Ca and iCa levels - Replacement of calcium as appropriate - Telemetry monitoring - PTH, TSH levels - TSH stabilizing - PTH pending - MRI C, T, L spine - MRI brain 6. Gastrointestinal Has had diarrheal illness x 2 wks. Volume is not huge 1-2 episodes/day - C difficile positive - Starting 125 mg po Vancomycin q 6 hours - Check stool culture/enteric pathogen screen - Check ova/parasite - Regular diet for now if tolerated - Hold on additional antidiarrheals until C difficile back 7. Neuromusculoskeletal Patient reportedly having intermittent paresthesias and tremor c/w hypocalcemic tetani - Replace electrolytes as above - PT to evaluate - Pain control as appropriate 8. Infectious Disease/Heme Patient has markedly elevated leukocytosis. I am unclear as to the reason for this given no fever and an overall non-toxic appearance to the patient. I would be concerned about a hematologic malignancy given the presentation overall - Check peripheral smear TRISTON - Follow 9. Mental Health/Psychiatric No active concerns or issues DISPOSITION: Pending but anticipating 2-4 day stay HOSPITALIST: Gunner Brady M.D. 18 January 2020, 1245 hrs
[2020-01-18] MEDS: NS + KCl 20mEq/L 1,000 ML IV SCH ×2 (13:16→23:33)
[2020-01-18] MEDS ORDERED: Potassium Chloride 20 MEQ in Premix Bag 2 BAG IV ONE (18:47)
[2020-01-19] MEDS ORDERED: Calcium Gluconate 2 GM in Sodium Chloride 0.9% 100 ML IV ONE ×4 (00:47→17:52)
[2020-01-19] MEDS ORDERED: Potassium Chloride 20 MEQ Tab.ER PO ONE ×5 (00:49→17:52)
[2020-01-19] MEDS: Vancomycin 250 MG/5 ML ML Oral Solution PO SCH ×4 (05:44→21:23)
[2020-01-19] MEDS: Acetaminophen 325 MG Tab PO PRN ×2 (05:48→12:30)
[2020-01-19] MEDS: Enoxaparin 40 MG/0.4 ML Syringe SUBCUT SCH (09:55)
[2020-01-19] MEDS: Lisinopril 10 MG Tab PO SCH (09:58)
[2020-01-19] MEDS: Potassium Chloride 20 MEQ, Lidocaine 1% 2 ML in Sodium Chloride 0.9% 100 ML IV SCH ×2 (09:58→16:25)
[2020-01-19] MEDS: NS + KCl 20mEq/L 1,000 ML IV SCH ×2 (10:03→21:22)
[2020-01-19] MEDS: Hydrochlorothiazide 12.5 MG Cap PO SCH (10:11)
[2020-01-19] MEDS ORDERED: Gadoteridol 279.3 MG/ML 15 ML SDV IV SCH (12:00)
--- NOTE | 2020-01-19 13:50 | MR ---
Lumbar Spine Comp w wo Cont CLINICAL HISTORY: Hypocalcemia, pain COMPARISON: None TECHNIQUE: Multiple pulse sequences were obtained in the sagittal and axial planes both without and with the IV infusion of 15 mL of ProHance. All images were obtained on a 1.5 Melissa unit. FINDINGS: Sagittal images show the lumbar vertebral configuration and signal is normal throughout. Alignment is maintained. The conus medullaris and lumbar nerve roots have a normal signal and configuration . There is a parapelvic cyst lower pole left kidney. There is a renal cortical cyst measuring approximate 1 cm in the upper pole right kidney Axial images show some mild concentric disc bulging at L1-2 and L2-3. There is also some mild facet osteoarthropathy. There is concentric disc bulging at L3-4 with facet hypertrophy. This causes some encroachment on the lateral recesses and both neural foramina. There is concentric disc bulging at L4-5 with facet hypertrophy causing mild central canal stenosis as well as encroachment on the lateral recesses in the right neural foramina. L5-S1 disc has normal contour. Postcontrast images show no enhancing lesions. IMPRESSION: Diffuse degenerative disc changes and facet osteoarthropathy Lateral recess and neural foraminal encroachment at L3-4 and L4-5 with mild central canal stenosis at L4-5 No focal lesion identified
--- NOTE | 2020-01-19 13:57 | MR ---
Brain w wo Cont CLINICAL HISTORY: Hypocalcemia, tetani COMPARISON: 2017 TECHNIQUE: Multiple pulse sequences were obtained through the brain in the axial, coronal, and sagittal planes both pre-and post IV contrast infusion gadolinium-based contrast. All images were obtained on a 1.5 Melissa unit. FINDINGS: Diffusion images show no abnormal signal. There is no focal mass lesion. There is no hemorrhage, edema, or extraaxial collection. There is moderate T2 signal in the periventricular and subcortical white matter. This is similar if not slightly greater when compared to 2017. The basal cisterns and sulci over the convexities are prominent. The ventricles are mildly prominent. Postcontrast images show no enhancing lesions. IMPRESSION: Age-related atrophy Chronic ischemic microvascular changes No focal lesion, mass effect or hemorrhage
[2020-01-19] MEDS: Clindamycin HCl 150 MG Cap PO SCH ×2 (14:21→20:25)
[2020-01-19] MEDS: Lactobacillus Rhamnosus GG (Probiotic) Cap PO SCH ×2 (14:21→20:26)
--- NOTE | 2020-01-19 16:06 | PCM.PN ---
- General Info Date of Service: 01/19/20 Subjective Update: Mr. Daley admitted yesterday with a longstanding history of diarrhea found to be C. difficile positive. Associated with this was marked hypokalemia and hypocalcemia. He has received vigorous potassium and calcium replacement but despite this did remain low this morning. Diarrhea is unchanged and he continues to experience some cramping abdominal pain. Functional Status: Reports: Tolerating Diet, Ambulating, Urinating - Review of Systems General: Reports: Weakness, Fatigue. Denies: Fever, Chills Pulmonary: Reports: No Symptoms Cardiovascular: Reports: No Symptoms Gastrointestinal: Reports: Abdominal Pain, Decreased Appetite, Diarrhea. Denies: Constipation, Difficulty Swallowing, Nausea, Vomiting Genitourinary: Reports: No Symptoms - Patient Data Vitals - Most Recent: Last Vital Signs Temp 99.9 F 01/19/20 13:00 Pulse 75 01/19/20 15:00 Resp 13 01/19/20 15:00 BP 168/87 H 01/19/20 15:00 Pulse Ox 94 L 01/19/20 15:00 Weight - Most Recent: 173 lb 8 oz I&O - Last 24 Hours: Intake & Output 01/19/20 01/19/20 01/19/20 06:59 14:59 22:59 Intake Total 480 480 Balance 480 480 Lab Results Last 24 Hours: Laboratory Results - last 24 hr 01/18/20 01/18/20 01/19/20 Range/Units 18:00 18:34 00:05 WBC (4.5-11.0) K/uL RBC (4.30-5.90) M/uL Hgb (12.0-15.0) g/dL Hct (40.0-54.0) % MCV (80-98) fL MCH (27-31) pg MCHC (32-36) % Plt Count (150-400) K/uL Neut % (Auto) (36-66) % Lymph % (Auto) (24-44) % [place] % (Auto) (2-6) % Eos % (Auto) (2-4) % Baso % (Auto) (0-1) % Sodium (140-148) mmol/L Potassium 2.2 L* (3.6-5.2) mmol/L Chloride (100-108) mmol/L Carbon Dioxide (21-32) mmol/L Anion Gap (5.0-14.0) mmol/L BUN (7-18) mg/dL Creatinine (0.8-1.3) mg/dL Est Cr Clr Drug Dosing mL/min Estimated GFR (MDRD) (>60) Glucose (74-106) mg/dL Calcium 5.8 L* (8.5-10.1) mg/dL POC WB Ioniz Calcium 0.75 L* 0.73 L* (1.12-1.32) mmol/L Total Bilirubin (0.2-1.0) mg/dL AST (15-37) U/L ALT (12-78) U/L Alkaline Phosphatase (46-116) U/L Total Protein (6.4-8.2) g/dL Albumin (3.4-5.0) g/dL Globulin (2.3-3.5) g/dL Albumin/Globulin Ratio (1.2-2.2) 01/19/20 01/19/20 01/19/20 Range/Units 00:05 05:46 05:46 WBC 18.7 H (4.5-11.0) K/uL RBC 4.21 L (4.30-5.90) M/uL Hgb 11.1 L D (12.0-15.0) g/dL Hct 33.9 L (40.0-54.0) % MCV 81 (80-98) fL MCH 26 L (27-31) pg MCHC 33 (32-36) % Plt Count 338 (150-400) K/uL Neut % (Auto) 63 (36-66) % Lymph % (Auto) 29 (24-44) % [place] % (Auto) 7 H (2-6) % Eos % (Auto) 1 L (2-4) % Baso % (Auto) 0 (0-1) % Sodium 142 (140-148) mmol/L Potassium 2.7 L* 2.7 L* (3.6-5.2) mmol/L Chloride 103 (100-108) mmol/L Carbon Dioxide 29 (21-32) mmol/L Anion Gap 12.7 (5.0-14.0) mmol/L BUN 13 (7-18) mg/dL Creatinine 1.1 (0.8-1.3) mg/dL Est Cr Clr Drug Dosing 63.70 mL/min Estimated GFR (MDRD) > 60 (>60) Glucose 97 (74-106) mg/dL Calcium 5.5 L* 6.0 L* (8.5-10.1) mg/dL POC WB Ioniz Calcium (1.12-1.32) mmol/L Total Bilirubin 0.7 (0.2-1.0) mg/dL AST 23 (15-37) U/L ALT 14 (12-78) U/L Alkaline Phosphatase 58 (46-116) U/L Total Protein 5.5 L (6.4-8.2) g/dL Albumin 2.0 L (3.4-5.0) g/dL Globulin 3.5 (2.3-3.5) g/dL Albumin/Globulin Ratio 0.6 L (1.2-2.2) Juliocesar Results Last 24 Hours: Microbiology 01/18/20 05:01 Stool Culture - Preliminary Stool / Feces NORMAL ENTERIC TIKA 1 DAY Shiga Toxin I - Final NEGATIVE FOR SHIGA TOXIN 1 Shiga Toxin II - Final NEGATIVE FOR SHIGA TOXIN 2 REFERENCE RANGE: NEGATIVE 01/18/20 03:22 Clostridioides difficile Toxin Assay - Final Stool / Feces Clostridioides difficile (PCR) - Final Med Orders - Current: Current Medications Acetaminophen (Tylenol) 650 mg PO Q4H PRN PRN Reason: Pain (Mild 1-3)/fever Last Admin: 01/19/20 12:30 Dose: 650 mg Documented by: Clindamycin HCl (Cleocin) 300 mg PO Q6H [facility] Last Admin: 01/19/20 14:21 Dose: 300 mg Documented by: Enoxaparin Sodium (Lovenox) 40 mg SUBCUT DAILY [facility] Last Admin: 01/19/20 09:55 Dose: 40 mg Documented by: Hydrochlorothiazide (Hydrochlorothiazide) 12.5 mg PO DAILY [facility] Last Admin: 01/19/20 10:11 Dose: Not Given Documented by: Potassium Chloride/Sodium Chloride (Normal Saline With 20 Meq Kcl) 1,000 mls @ 100 mls/hr IV ASDIRECTED [facility] Last Admin: 01/19/20 10:03 Dose: 100 mls/hr Documented by: Lactobacillus Rhamnosus (Culturelle) 1 cap PO BID [facility] Last Admin: 01/19/20 14:21 Dose: 1 cap Documented by: Lisinopril (Prinivil) 10 mg PO DAILY [facility] Last Admin: 01/19/20 09:58 Dose: 10 mg Documented by: Ondansetron HCl (Zofran Odt) 4 mg PO Q6H PRN PRN Reason: Nausea able to take PO Ondansetron HCl (Zofran) 4 mg IV Q6H PRN PRN Reason: Nausea/Vomiting Vancomycin HCl (Vancocin 250 Mg/5 Ml Soln) 125 mg PO QID [facility] Last Admin: 01/19/20 09:55 Dose: 125 mg Documented by: Discontinued Medications Calcium Gluconate (Calcium Gluconate) Confirm Administered Dose 1 gm .ROUTE .STK-MED ONE Stop: 01/18/20 05:42 Last Admin: 01/18/20 05:52 Dose: Not Given Documented by: Gadoteridol (Prohance) 15 ml IV .A DIRECTED [facility] Stop: 01/19/20 13:00 Last Admin: 01/19/20 11:58 Dose: 15 ml Documented by: Calcium Gluconate 2 gm/ Sodium (Chloride) 120 mls @ 100 mls/hr IV ONETIME ONE Stop: 01/18/20 06:35 Last Admin: 01/18/20 05:57 Dose: 100 mls/hr Documented by: Potassium Chloride 20 meq/ (Premix) 100 mls @ 50 mls/hr IV ONETIME ONE Stop: 01/18/20 07:24 Last Admin: 01/18/20 05:58 Dose: 50 mls/hr Documented by: Calcium Gluconate 2 gm/ Sodium (Chloride) 120 mls @ 100 mls/hr IV ONETIME ONE Stop: 01/18/20 14:41 Last Admin: 01/18/20 13:16 Dose: 100 mls/hr Documented by: Potassium Chloride 20 meq/ (Premix) 0 mls @ 50 mls/hr IV ONETIME ONE Stop: 01/18/20 18:48 Last Admin: 01/18/20 19:13 Dose: 50 mls/hr Documented by: Calcium Gluconate 2 gm/ Sodium (Chloride) 120 mls @ 100 mls/hr IV ONETIME ONE Stop: 01/19/20 01:58 Last Admin: 01/19/20 01:25 Dose: 100 mls/hr Documented by: Calcium Gluconate 2 gm/ Sodium (Chloride) 120 mls @ 100 mls/hr IV ONETIME ONE Stop: 01/19/20 07:35 Last Admin: 01/19/20 06:48 Dose: 100 mls/hr Documented by: Potassium Chloride 20 meq/Lidocaine HCl 2 ml/ Sodium Chloride 112 mls @ 56 mls/hr IV Q2H [facility] Stop: 01/19/20 13:59 Last Admin: 01/19/20 09:58 Dose: 56 mls/hr Documented by: Calcium Gluconate 2 gm/ Sodium (Chloride) 120 mls @ 100 mls/hr IV ONETIME ONE Stop: 01/19/20 15:11 Last Admin: 01/19/20 14:19 Dose: 100 mls/hr Documented by: Lidocaine HCl (Xylocaine-Mpf 1%) 2 ml INJECT ONETIME ONE Stop: 01/18/20 05:30 Last Admin: 01/18/20 06:08 Dose: 2 ml Documented by: Lidocaine HCl (Xylocaine-Mpf 1%) Confirm Administered Dose 5 ml .ROUTE .STK-MED ONE Stop: 01/18/20 05:56 Last Admin: 01/18/20 06:36 Dose: Not Given Documented by: Lidocaine HCl (Xylocaine-Mpf 1%) 4 ml INJECT ONETIME ONE Stop: 01/18/20 18:50 Last Admin: 01/18/20 19:14 Dose: 4 ml Documented by: Potassium Chloride (Klor-Con M20) 20 meq PO ONETIME ONE Stop: 01/19/20 00:50 Last Admin: 01/19/20 01:25 Dose: 20 meq Documented by: Potassium Chloride (Klor-Con M20) 20 meq PO ONETIME ONE Stop: 01/19/20 06:24 Last Admin: 01/19/20 06:48 Dose: 20 meq Documented by: Potassium Chloride (Klor-Con M20) 40 meq PO ONETIME ONE Stop: 01/19/20 09:01 Last Admin: 01/19/20 09:55 Dose: 40 meq Documented by: Potassium Chloride (Klor-Con M20) 40 meq PO ONETIME ONE Stop: 01/19/20 14:01 Last Admin: 01/19/20 14:22 Dose: 40 meq Documented by: - Exam Quality Assessment: DVT Prophylaxis General: Alert, Oriented, Cooperative, Moderate Distress Lungs: Clear to Auscultation, Normal Respiratory Effort Cardiovascular: Regular Rate, Regular Rhythm, No Murmurs GI/Abdominal Exam: Soft, No Organomegaly, Tender. No: Distended, Guarding, Rigid, Rebound Extremities: Non-Tender, No Pedal Edema Sepsis Event Note - Evaluation Sepsis Screening Result: No Definite Risk - Focused Exam Vital Signs: Vital Signs Temp Pulse Resp BP BP Pulse Ox 01/19/20 15:00 75 13 168/87 H 94 L 01/19/20 13:00 99.9 F 76 19 158/88 H 93 L 01/19/20 09:58 163/81 H 01/19/20 09:00 99.7 F 73 17 163/81 H 97 01/19/20 07:00 100.1 F 19 132/75 95 01/19/20 05:00 74 21 H 156/74 H 91 L - Problem List Review Problem List Initiated/Reviewed/Updated: Yes - My Orders Last 24 Hours: My Active Orders 01/19/20 14:00 Lactobacillus Rhamnosus GG [Culturelle] 1 cap PO BID clindamycin HCL [Cleocin] 300 mg PO Q6H 01/19/20 17:00 BASIC METABOLIC PANEL,BMP [CHEM] Stat - Plan Plan:: ASSESSMENT AND PLAN: Hypokalemia -IV and oral potassium replacement -Reassess potassium level this afternoon and in a.m. Hypocalcemia - Replacement of calcium as appropriate - Telemetry monitoring - PTH, TSH levels - TSH stabilizing - PTH pending - MRI C, T, L spine - MRI brain C. difficile colitis-he had a dental infection within the past several weeks and did receive oral antibiotic therapy as the likely underlying cause. -Vancomycin 125 mg p.o. every 6 hours DISPOSITION: Pending but anticipating 2-4 day stay
[2020-01-19] MEDS: oxyCODONE 5 MG Tab PO PRN (20:25)
[2020-01-20] MEDS: Clindamycin HCl 150 MG Cap PO SCH ×4 (01:13→20:41)
[2020-01-20] MEDS: Vancomycin 250 MG/5 ML ML Oral Solution PO SCH ×4 (05:23→22:00)
[2020-01-20] MEDS ORDERED: Calcium Gluconate 2 GM in Sodium Chloride 0.9% 100 ML IV ONE ×3 (06:21→13:00)
[2020-01-20] MEDS ORDERED: Potassium Chloride 20 MEQ Tab.ER PO ONE ×2 (06:22→12:45)
[2020-01-20] MEDS: NS + KCl 20mEq/L 1,000 ML IV SCH (07:28)
[2020-01-20] MEDS: Lisinopril 10 MG Tab PO SCH (08:32)
[2020-01-20] MEDS: Enoxaparin 40 MG/0.4 ML Syringe SUBCUT SCH (08:33)
[2020-01-20] MEDS: Lactobacillus Rhamnosus GG (Probiotic) Cap PO SCH ×2 (08:36→20:41)
[2020-01-20] MEDS: oxyCODONE 5 MG Tab PO PRN (09:44)
[2020-01-20] MEDS: Hydrochlorothiazide 12.5 MG Cap PO SCH (10:19)
[2020-01-20] MEDS ORDERED: Gadoteridol 279.3 MG/ML 15 ML SDV IV SCH ×2 (10:45→13:00)
--- NOTE | 2020-01-20 12:38 | PCM.PN ---
- General Info Date of Service: 01/20/20 Subjective Update: Mr. Daley has felt improved over the last 24 hours with less diarrhea and increased strength. Appetite seems to be improving and overall he feels better. Functional Status: Reports: Tolerating Diet, Ambulating, Urinating - Review of Systems General: Reports: Weakness, Fatigue. Denies: Fever, Chills Pulmonary: Reports: No Symptoms Cardiovascular: Reports: No Symptoms Gastrointestinal: Reports: Abdominal Pain, Diarrhea. Denies: Difficulty Swallowing, Hematochezia, Melena, Nausea, Vomiting - Patient Data Vitals - Most Recent: Last Vital Signs Temp 97.8 F 01/20/20 04:00 Pulse 108 H 01/20/20 10:00 Resp 22 H 01/20/20 10:00 BP 151/73 H 01/20/20 10:00 Pulse Ox 91 L 01/20/20 10:00 Weight - Most Recent: 173 lb 8 oz I&O - Last 24 Hours: Intake & Output 01/19/20 01/20/20 01/20/20 22:59 06:59 14:59 Intake Total 3471 Balance 3471 Lab Results Last 24 Hours: Laboratory Results - last 24 hr 01/18/20 01/19/20 01/20/20 Range/Units 05:17 17:33 05:23 WBC (4.5-11.0) K/uL RBC (4.30-5.90) M/uL Hgb (12.0-15.0) g/dL Hct (40.0-54.0) % MCV (80-98) fL MCH (27-31) pg MCHC (32-36) % Plt Count (150-400) K/uL Neut % (Auto) (36-66) % Lymph % (Auto) (24-44) % [place] % (Auto) (2-6) % Eos % (Auto) (2-4) % Baso % (Auto) (0-1) % Sodium 145 (140-148) mmol/L Potassium 3.4 L (3.6-5.2) mmol/L Chloride 105 (100-108) mmol/L Carbon Dioxide 28 (21-32) mmol/L Anion Gap 15.4 H (5.0-14.0) mmol/L BUN 12 (7-18) mg/dL Creatinine 1.2 (0.8-1.3) mg/dL Est Cr Clr Drug Dosing 58.39 mL/min Estimated GFR (MDRD) 59 L (>60) Glucose 129 H (74-106) mg/dL Calcium 7.0 L D (8.5-10.1) mg/dL POC WB Ioniz Calcium 0.98 L* (1.12-1.32) mmol/L Total Bilirubin (0.2-1.0) mg/dL AST (15-37) U/L ALT (12-78) U/L Alkaline Phosphatase (46-116) U/L Total Protein (6.4-8.2) g/dL Albumin (3.4-5.0) g/dL Globulin (2.3-3.5) g/dL Albumin/Globulin Ratio (1.2-2.2) PTH Intact 51 (15-65) pg/mL 01/20/20 01/20/20 Range/Units 05:39 05:39 WBC 16.1 H (4.5-11.0) K/uL RBC 3.75 L (4.30-5.90) M/uL Hgb 10.1 L (12.0-15.0) g/dL Hct 30.8 L (40.0-54.0) % MCV 82 (80-98) fL MCH 27 (27-31) pg MCHC 33 (32-36) % Plt Count 319 (150-400) K/uL Neut % (Auto) 57 (36-66) % Lymph % (Auto) 34 (24-44) % [place] % (Auto) 8 H (2-6) % Eos % (Auto) 1 L (2-4) % Baso % (Auto) 0 (0-1) % Sodium 144 (140-148) mmol/L Potassium 3.4 L (3.6-5.2) mmol/L Chloride 108 (100-108) mmol/L Carbon Dioxide 27 (21-32) mmol/L Anion Gap 12.4 (5.0-14.0) mmol/L BUN 9 (7-18) mg/dL Creatinine 1.0 (0.8-1.3) mg/dL Est Cr Clr Drug Dosing 70.07 mL/min Estimated GFR (MDRD) > 60 (>60) Glucose 95 (74-106) mg/dL Calcium 6.6 L* (8.5-10.1) mg/dL POC WB Ioniz Calcium (1.12-1.32) mmol/L Total Bilirubin 0.6 (0.2-1.0) mg/dL AST 21 (15-37) U/L ALT 8 L (12-78) U/L Alkaline Phosphatase 53 (46-116) U/L Total Protein 5.1 L (6.4-8.2) g/dL Albumin 1.9 L (3.4-5.0) g/dL Globulin 3.2 (2.3-3.5) g/dL Albumin/Globulin Ratio 0.6 L (1.2-2.2) PTH Intact (15-65) pg/mL Juliocesar Results Last 24 Hours: Microbiology 01/18/20 05:01 Stool Culture - Preliminary Stool / Feces NORMAL ENTERIC TIKA 2 DAYS Shiga Toxin I - Final NEGATIVE FOR SHIGA TOXIN 1 Shiga Toxin II - Final NEGATIVE FOR SHIGA TOXIN 2 REFERENCE RANGE: NEGATIVE Med Orders - Current: Current Medications Acetaminophen (Tylenol) 650 mg PO Q4H PRN PRN Reason: Pain (Mild 1-3)/fever Last Admin: 01/19/20 12:30 Dose: 650 mg Documented by: Clindamycin HCl (Cleocin) 300 mg PO Q6H [facility] Last Admin: 01/20/20 08:32 Dose: 300 mg Documented by: Enoxaparin Sodium (Lovenox) 40 mg SUBCUT DAILY [facility] Last Admin: 01/20/20 08:33 Dose: 40 mg Documented by: Hydrochlorothiazide (Hydrochlorothiazide) 12.5 mg PO DAILY [facility] Last Admin: 01/20/20 10:19 Dose: Not Given Documented by: Calcium Gluconate 2 gm/ Sodium (Chloride) 120 mls @ 100 mls/hr IV ONETIME ONE Stop: 01/20/20 13:39 Lactobacillus Rhamnosus (Culturelle) 1 cap PO BID [facility] Last Admin: 01/20/20 08:36 Dose: 1 cap Documented by: Lisinopril (Prinivil) 10 mg PO DAILY [facility] Last Admin: 01/20/20 08:32 Dose: 10 mg Documented by: Ondansetron HCl (Zofran Odt) 4 mg PO Q6H PRN PRN Reason: Nausea able to take PO Ondansetron HCl (Zofran) 4 mg IV Q6H PRN PRN Reason: Nausea/Vomiting Oxycodone HCl (Oxycodone) 5 mg PO Q4H PRN PRN Reason: Pain Last Admin: 01/20/20 09:44 Dose: 5 mg Documented by: Potassium Chloride (Klor-Con M20) 40 meq PO ONETIME ONE Stop: 01/20/20 12:29 Vancomycin HCl (Vancocin 250 Mg/5 Ml Soln) 125 mg PO QID [facility] Last Admin: 01/20/20 09:46 Dose: 125 mg Documented by: Discontinued Medications Calcium Gluconate (Calcium Gluconate) Confirm Administered Dose 1 gm .ROUTE .STK-MED ONE Stop: 01/18/20 05:42 Last Admin: 01/18/20 05:52 Dose: Not Given Documented by: Gadoteridol (Prohance) 15 ml IV .A DIRECTED [facility] Stop: 01/19/20 13:00 Last Admin: 01/19/20 11:58 Dose: 15 ml Documented by: Gadoteridol (Prohance) 15 ml IV .A DIRECTED [facility] Stop: 01/20/20 11:00 Last Admin: 01/20/20 12:14 Dose: 15 ml Documented by: Calcium Gluconate 2 gm/ Sodium (Chloride) 120 mls @ 100 mls/hr IV ONETIME ONE Stop: 01/18/20 06:35 Last Admin: 01/18/20 05:57 Dose: 100 mls/hr Documented by: Potassium Chloride 20 meq/ (Premix) 100 mls @ 50 mls/hr IV ONETIME ONE Stop: 01/18/20 07:24 Last Admin: 01/18/20 05:58 Dose: 50 mls/hr Documented by: Calcium Gluconate 2 gm/ Sodium (Chloride) 120 mls @ 100 mls/hr IV ONETIME ONE Stop: 01/18/20 14:41 Last Admin: 01/18/20 13:16 Dose: 100 mls/hr Documented by: Potassium Chloride/Sodium Chloride (Normal Saline With 20 Meq Kcl) 1,000 mls @ 100 mls/hr IV ASDIRECTED [facility] Last Admin: 01/20/20 07:28 Dose: 100 mls/hr Documented by: Potassium Chloride 20 meq/ (Premix) 0 mls @ 50 mls/hr IV ONETIME ONE Stop: 01/18/20 18:48 Last Admin: 01/18/20 19:13 Dose: 50 mls/hr Documented by: Calcium Gluconate 2 gm/ Sodium (Chloride) 120 mls @ 100 mls/hr IV ONETIME ONE Stop: 01/19/20 01:58 Last Admin: 01/19/20 01:25 Dose: 100 mls/hr Documented by: Calcium Gluconate 2 gm/ Sodium (Chloride) 120 mls @ 100 mls/hr IV ONETIME ONE Stop: 01/19/20 07:35 Last Admin: 01/19/20 06:48 Dose: 100 mls/hr Documented by: Potassium Chloride 20 meq/Lidocaine HCl 2 ml/ Sodium Chloride 112 mls @ 56 mls/hr IV Q2H [facility] Stop: 01/19/20 13:59 Last Admin: 01/19/20 16:25 Dose: 56 mls/hr Documented by: Calcium Gluconate 2 gm/ Sodium (Chloride) 120 mls @ 100 mls/hr IV ONETIME ONE Stop: 01/19/20 15:11 Last Admin: 01/19/20 14:19 Dose: 100 mls/hr Documented by: Calcium Gluconate 2 gm/ Sodium (Chloride) 120 mls @ 100 mls/hr IV ONETIME ONE Stop: 01/19/20 19:03 Last Admin: 01/19/20 18:44 Dose: 100 mls/hr Documented by: Calcium Gluconate 2 gm/ Sodium (Chloride) 120 mls @ 100 mls/hr IV ONETIME ONE Stop: 01/20/20 09:11 Last Admin: 01/20/20 07:29 Dose: 100 mls/hr Documented by: Lidocaine HCl (Xylocaine-Mpf 1%) 2 ml INJECT ONETIME ONE Stop: 01/18/20 05:30 Last Admin: 01/18/20 06:08 Dose: 2 ml Documented by: Lidocaine HCl (Xylocaine-Mpf 1%) Confirm Administered Dose 5 ml .ROUTE .STK-MED ONE Stop: 01/18/20 05:56 Last Admin: 01/18/20 06:36 Dose: Not Given Documented by: Lidocaine HCl (Xylocaine-Mpf 1%) 4 ml INJECT ONETIME ONE Stop: 01/18/20 18:50 Last Admin: 01/18/20 19:14 Dose: 4 ml Documented by: Potassium Chloride (Klor-Con M20) 20 meq PO ONETIME ONE Stop: 01/19/20 00:50 Last Admin: 01/19/20 01:25 Dose: 20 meq Documented by: Potassium Chloride (Klor-Con M20) 20 meq PO ONETIME ONE Stop: 01/19/20 06:24 Last Admin: 01/19/20 06:48 Dose: 20 meq Documented by: Potassium Chloride (Klor-Con M20) 40 meq PO ONETIME ONE Stop: 01/19/20 09:01 Last Admin: 01/19/20 09:55 Dose: 40 meq Documented by: Potassium Chloride (Klor-Con M20) 40 meq PO ONETIME ONE Stop: 01/19/20 14:01 Last Admin: 01/19/20 14:22 Dose: 40 meq Documented by: Potassium Chloride (Klor-Con M20) 40 meq PO ONETIME ONE Stop: 01/19/20 17:53 Last Admin: 01/19/20 18:44 Dose: 40 meq Documented by: Potassium Chloride (Klor-Con M20) 40 meq PO ONETIME ONE Stop: 01/20/20 06:23 Last Admin: 01/20/20 08:32 Dose: 40 meq Documented by: - Exam Quality Assessment: DVT Prophylaxis General: Alert, Oriented, Cooperative, Mild Distress Lungs: Clear to Auscultation, Normal Respiratory Effort Cardiovascular: Regular Rate, Regular Rhythm, No Murmurs GI/Abdominal Exam: Soft, No Organomegaly, Tender. No: Distended, Guarding, Rigid, Rebound Extremities: Non-Tender, No Pedal Edema Sepsis Event Note - Evaluation Sepsis Screening Result: No Definite Risk - Focused Exam Vital Signs: Vital Signs Temp Pulse Resp BP BP Pulse Ox 01/20/20 10:00 108 H 22 H 151/73 H 91 L 01/20/20 08:32 128/78 01/20/20 07:20 60 14 125/58 L 95 01/20/20 06:00 18 125/58 L 91 L 01/20/20 04:00 97.8 F 70 12 130/66 96 01/20/20 02:00 98.0 F 20 120/67 93 L - Problem List Review Problem List Initiated/Reviewed/Updated: Yes - My Orders Last 24 Hours: My Active Orders 01/19/20 14:00 Lactobacillus Rhamnosus GG [Culturelle] 1 cap PO BID clindamycin HCL [Cleocin] 300 mg PO Q6H 01/19/20 17:36 oxyCODONE 5 mg PO Q4H PRN 01/20/20 11:00 Cervical Spine Comp wo Cont [MR] Routine Thoracic Spine Comp w wo Cont [MR] Routine 01/20/20 12:28 Calcium Gluconate 2 gm Sodium Chloride 0.9% [Normal Saline] 100 ml IV ONETIME Potassium Chloride [Klor-Con M20] 40 meq PO ONETIME ONE 01/20/20 12:31 Convert IV to Saline Lock [OM.PC] Routine 01/20/20 17:00 BASIC METABOLIC PANEL,BMP [CHEM] Stat 01/21/20 05:00 BASIC METABOLIC PANEL,BMP [CHEM] Timed CALCIUM IONIZED,ISTAT [POC] DAILY CBC WITH AUTO DIFF [HEME] Timed 01/22/20 05:00 CALCIUM IONIZED,ISTAT [POC] DAILY - Plan Plan:: ASSESSMENT AND PLAN: Hypokalemia -IV and oral potassium replacement -Reassess potassium level this afternoon and in a.m. Hypocalcemia-MRI of the brain and lumbar spine were unremarkable - Replacement of calcium as appropriate - Telemetry monitoring - PTH pending - MRI C, T spine C. difficile colitis-he had a dental infection within the past several weeks and did receive oral antibiotic therapy as the likely underlying cause. -Vancomycin 125 mg p.o. every 6 hours DISPOSITION: Pending but anticipating 2-4 day stay
[2020-01-20] MEDS: Calcium Carbonate/Vitamin D3 1500 MG-400 Units Tab PO SCH ×2 (13:00→20:41)
[2020-01-20] MEDS: Calcium Carbonate 500 MG Tab.Chew PO PRN ×2 (18:52→20:41)
[2020-01-21] MEDS: Clindamycin HCl 150 MG Cap PO SCH ×4 (02:34→19:50)
[2020-01-21] MEDS: Vancomycin 250 MG/5 ML ML Oral Solution PO SCH ×4 (04:59→22:43)
[2020-01-21] MEDS: Enoxaparin 40 MG/0.4 ML Syringe SUBCUT SCH (08:08)
[2020-01-21] MEDS: Calcium Carbonate 500 MG Tab.Chew PO PRN ×2 (08:08→18:40)
[2020-01-21] MEDS: Calcium Carbonate/Vitamin D3 1500 MG-400 Units Tab PO SCH ×3 (08:09→20:44)
[2020-01-21] MEDS: Lactobacillus Rhamnosus GG (Probiotic) Cap PO SCH ×3 (08:09→20:44)
[2020-01-21] MEDS: Lisinopril 10 MG Tab PO SCH (08:10)
[2020-01-21] MEDS ORDERED: Potassium Chloride 20 MEQ Tab.ER PO ONE ×2 (08:47→21:28)
[2020-01-21] MEDS ORDERED: Calcium Gluconate 2 GM in Sodium Chloride 0.9% 100 ML IV ONE (09:00)
[2020-01-21 12:13] LABS: THYROGLOBULIN ANTIBODY <1.0 IU/mL (0.0-0.9); THYROID PEROXIDASE (TPO) AB <9 IU/mL (0-34)
[2020-01-21] MEDS: Hydrochlorothiazide 12.5 MG Cap PO SCH (13:16)
--- NOTE | 2020-01-21 19:12 | PCM.PN ---
- General Info Date of Service: 01/21/20 Subjective Update: Mr. Daley has felt improved over the last 24 hours. Less diarrhea with increased energy and improved appetite. Vital signs have been good and he has remained afebrile. Abdominal pain has essentially resolved and electrolytes have improved significantly with replacement. Functional Status: Reports: Tolerating Diet, Ambulating, Urinating - Review of Systems General: Reports: Weakness, Fatigue. Denies: Fever, Chills Pulmonary: Reports: No Symptoms Cardiovascular: Reports: No Symptoms Gastrointestinal: Reports: Diarrhea. Denies: Abdominal Pain, Constipation, Difficulty Swallowing, Hematochezia, Melena, Nausea, Vomiting - Patient Data Vitals - Most Recent: Last Vital Signs Temp 97.6 F 01/21/20 14:38 Pulse 55 L 01/21/20 14:38 Resp 16 01/21/20 14:38 BP 168/68 H 01/21/20 14:38 Pulse Ox 95 01/21/20 14:38 Weight - Most Recent: 173 lb 8 oz I&O - Last 24 Hours: Intake & Output 01/21/20 01/21/20 01/21/20 06:59 14:59 22:59 Intake Total 1000 580 480 Balance 1000 580 480 Lab Results Last 24 Hours: Laboratory Results - last 24 hr 01/18/20 01/18/20 01/21/20 Range/Units 04:30 05:17 05:40 WBC 13.3 H (4.5-11.0) K/uL WBC (Send Out) Cancelled RBC 3.93 L (4.30-5.90) M/uL RBC (Send Out) Cancelled Hgb 10.2 L (12.0-15.0) g/dL Hgb (Send Out) Cancelled Hct 32.4 L (40.0-54.0) % Hct (Send Out) Cancelled MCV 82 (80-98) fL MCV (Send Out) Cancelled MCH 26 L (27-31) pg MCH (Send Out) Cancelled MCHC 32 (32-36) % MCHC (Send Out) Cancelled Red Cell Dist (Send Out) Cancelled Plt Count 344 (150-400) K/uL Plt Count (Send Out) Cancelled Neut % (Auto) 51 (36-66) % Lymph % (Auto) 39 (24-44) % Edgar % (Auto) 8 H (2-6) % Eos % (Auto) 2 (2-4) % Baso % (Auto) 0 (0-1) % Diff Scan Cancelled Immature Gran % Cancelled Neutrophils % (Manual) Cancelled Neutrophils % Send Out Cancelled Band Neutrophils % Cancelled Lymphocytes % (Manual) Cancelled Lymphocytes % (Send Out) Cancelled Monocytes % (Manual) Cancelled Monocytes % (Send Out) Cancelled Eosinophils % (Manual) Cancelled Eosinophils % Send Out Cancelled Basophils % (Manual) Cancelled Basophils % (Send Out) Cancelled Metamyelocytes % Cancelled Myelocytes % Cancelled Promyelocytes % Cancelled Blast Cells % Cancelled Megakaryocytes % Cancelled Other Cells % Cancelled Immature Gran # Cancelled Neutrophils # (Manual) Cancelled Neutrophils # (Send Out) Cancelled Lymphocytes # (Manual) Cancelled Lymphocytes # (Send Out) Cancelled Monocytes # (Manual) Cancelled Monocytes #(Send Out) Cancelled Eosinophils # (Manual) Cancelled Eosinophils # Send Out Cancelled Basophils # (Manual) Cancelled Basophils # (Send Out) Cancelled Nucleated RBCs Send Out Cancelled Differential Comment Cancelled Immature Cells Send Out Cancelled Platelet Morphology Cancelled Plt Morphology Comment Cancelled RBC Morphology Cancelled RBC Morph Comment Cancelled Peripher Smr Path Cons Cancelled Smear Path Review Cancelled Hematology Comments Cancelled Sodium (140-148) mmol/L Potassium (3.6-5.2) mmol/L Chloride (100-108) mmol/L Carbon Dioxide (21-32) mmol/L Anion Gap (5.0-14.0) mmol/L BUN (7-18) mg/dL Creatinine (0.8-1.3) mg/dL Est Cr Clr Drug Dosing mL/min Estimated GFR (MDRD) (>60) Glucose (74-106) mg/dL Calcium (8.5-10.1) mg/dL POC WB Ioniz Calcium (1.12-1.32) mmol/L Total Bilirubin (0.2-1.0) mg/dL AST (15-37) U/L ALT (12-78) U/L Alkaline Phosphatase (46-116) U/L Total Protein (6.4-8.2) g/dL Albumin (3.4-5.0) g/dL Globulin (2.3-3.5) g/dL Albumin/Globulin Ratio (1.2-2.2) TSH 1.650 (0.450-4.500) uIU/mL Thyroperoxidase Ab <9 (0-34) IU/mL Thyroglobulin Antibody <1.0 (0.0-0.9) IU/mL 01/21/20 01/21/20 Range/Units 05:40 05:40 WBC (4.5-11.0) K/uL WBC (Send Out) RBC (4.30-5.90) M/uL RBC (Send Out) Hgb (12.0-15.0) g/dL Hgb (Send Out) Hct (40.0-54.0) % Hct (Send Out) MCV (80-98) fL MCV (Send Out) MCH (27-31) pg MCH (Send Out) MCHC (32-36) % MCHC (Send Out) Red Cell Dist (Send Out) Plt Count (150-400) K/uL Plt Count (Send Out) Neut % (Auto) (36-66) % Lymph % (Auto) (24-44) % Edgar % (Auto) (2-6) % Eos % (Auto) (2-4) % Baso % (Auto) (0-1) % Diff Scan Immature Gran % Neutrophils % (Manual) Neutrophils % Send Out Band Neutrophils % Lymphocytes % (Manual) Lymphocytes % (Send Out) Monocytes % (Manual) Monocytes % (Send Out) Eosinophils % (Manual) Eosinophils % Send Out Basophils % (Manual) Basophils % (Send Out) Metamyelocytes % Myelocytes % Promyelocytes % Blast Cells % Megakaryocytes % Other Cells % Immature Gran # Neutrophils # (Manual) Neutrophils # (Send Out) Lymphocytes # (Manual) Lymphocytes # (Send Out) Monocytes # (Manual) Monocytes #(Send Out) Eosinophils # (Manual) Eosinophils # Send Out Basophils # (Manual) Basophils # (Send Out) Nucleated RBCs Send Out Differential Comment Immature Cells Send Out Platelet Morphology Plt Morphology Comment RBC Morphology RBC Morph Comment Peripher Smr Path Cons Smear Path Review Hematology Comments Sodium 145 (140-148) mmol/L Potassium 3.1 L (3.6-5.2) mmol/L Chloride 107 (100-108) mmol/L Carbon Dioxide 27 (21-32) mmol/L Anion Gap 14.1 H (5.0-14.0) mmol/L BUN 5 L (7-18) mg/dL Creatinine 1.0 (0.8-1.3) mg/dL Est Cr Clr Drug Dosing 70.07 mL/min Estimated GFR (MDRD) > 60 (>60) Glucose 100 (74-106) mg/dL Calcium 7.3 L (8.5-10.1) mg/dL POC WB Ioniz Calcium 1.06 L (1.12-1.32) mmol/L Total Bilirubin 0.5 (0.2-1.0) mg/dL AST 30 (15-37) U/L ALT 17 D (12-78) U/L Alkaline Phosphatase 60 (46-116) U/L Total Protein 5.4 L (6.4-8.2) g/dL Albumin 2.0 L (3.4-5.0) g/dL Globulin 3.4 (2.3-3.5) g/dL Albumin/Globulin Ratio 0.6 L (1.2-2.2) TSH (0.450-4.500) uIU/mL Thyroperoxidase Ab (0-34) IU/mL Thyroglobulin Antibody (0.0-0.9) IU/mL Juliocesar Results Last 24 Hours: Microbiology 01/18/20 05:01 Stool Culture - Final Stool / Feces NORMAL ENTERIC TIKA. NO SALMONELLA, SHIGELLA, CAMPYLOBACTER OR E.COLI O157 ISOLATED. Shiga Toxin I - Final NEGATIVE FOR SHIGA TOXIN 1 Shiga Toxin II - Final NEGATIVE FOR SHIGA TOXIN 2 REFERENCE RANGE: NEGATIVE Med Orders - Current: Current Medications Acetaminophen (Tylenol) 650 mg PO Q4H PRN PRN Reason: Pain (Mild 1-3)/fever Last Admin: 01/19/20 12:30 Dose: 650 mg Documented by: Calcium Carbonate (Caltrate 600+D 1500 Mg-400 Units) 1 tab PO BID [facility] Last Admin: 01/21/20 08:09 Dose: 1 tab Documented by: Calcium Carbonate/Glycine (Tums) 500 mg PO Q2H PRN PRN Reason: Indigestion Last Admin: 01/21/20 18:40 Dose: 500 mg Documented by: Clindamycin HCl (Cleocin) 300 mg PO Q6H [facility] Last Admin: 01/21/20 15:09 Dose: 300 mg Documented by: Enoxaparin Sodium (Lovenox) 40 mg SUBCUT DAILY [facility] Last Admin: 01/21/20 08:08 Dose: 40 mg Documented by: Hydrochlorothiazide (Hydrochlorothiazide) 12.5 mg PO DAILY [facility] Last Admin: 01/21/20 13:16 Dose: Not Given Documented by: Lactobacillus Rhamnosus (Culturelle) 1 cap PO BID [facility] Last Admin: 01/21/20 08:09 Dose: 1 cap Documented by: Lisinopril (Prinivil) 10 mg PO DAILY [facility] Last Admin: 01/21/20 08:10 Dose: 10 mg Documented by: Ondansetron HCl (Zofran Odt) 4 mg PO Q6H PRN PRN Reason: Nausea able to take PO Ondansetron HCl (Zofran) 4 mg IV Q6H PRN PRN Reason: Nausea/Vomiting Oxycodone HCl (Oxycodone) 5 mg PO Q4H PRN PRN Reason: Pain Last Admin: 01/20/20 09:44 Dose: 5 mg Documented by: Vancomycin HCl (Vancocin 250 Mg/5 Ml Soln) 125 mg PO QID [facility] Last Admin: 01/21/20 15:09 Dose: 125 mg Documented by: Discontinued Medications Calcium Gluconate (Calcium Gluconate) Confirm Administered Dose 1 gm .ROUTE .STK-MED ONE Stop: 01/18/20 05:42 Last Admin: 01/18/20 05:52 Dose: Not Given Documented by: Gadoteridol (Prohance) 15 ml IV .A DIRECTED [facility] Stop: 01/19/20 13:00 Last Admin: 01/19/20 11:58 Dose: 15 ml Documented by: Gadoteridol (Prohance) 15 ml IV .A DIRECTED [facility] Stop: 01/20/20 11:00 Last Admin: 01/20/20 12:14 Dose: 15 ml Documented by: Calcium Gluconate 2 gm/ Sodium (Chloride) 120 mls @ 100 mls/hr IV ONETIME ONE Stop: 01/18/20 06:35 Last Admin: 01/18/20 05:57 Dose: 100 mls/hr Documented by: Potassium Chloride 20 meq/ (Premix) 100 mls @ 50 mls/hr IV ONETIME ONE Stop: 01/18/20 07:24 Last Admin: 01/18/20 05:58 Dose: 50 mls/hr Documented by: Calcium Gluconate 2 gm/ Sodium (Chloride) 120 mls @ 100 mls/hr IV ONETIME ONE Stop: 01/18/20 14:41 Last Admin: 01/18/20 13:16 Dose: 100 mls/hr Documented by: Potassium Chloride/Sodium Chloride (Normal Saline With 20 Meq Kcl) 1,000 mls @ 100 mls/hr IV ASDIRECTED [facility] Last Admin: 01/20/20 07:28 Dose: 100 mls/hr Documented by: Potassium Chloride 20 meq/ (Premix) 0 mls @ 50 mls/hr IV ONETIME ONE Stop: 01/18/20 18:48 Last Admin: 01/18/20 19:13 Dose: 50 mls/hr Documented by: Calcium Gluconate 2 gm/ Sodium (Chloride) 120 mls @ 100 mls/hr IV ONETIME ONE Stop: 01/19/20 01:58 Last Admin: 01/19/20 01:25 Dose: 100 mls/hr Documented by: Calcium Gluconate 2 gm/ Sodium (Chloride) 120 mls @ 100 mls/hr IV ONETIME ONE Stop: 01/19/20 07:35 Last Admin: 01/19/20 06:48 Dose: 100 mls/hr Documented by: Potassium Chloride 20 meq/Lidocaine HCl 2 ml/ Sodium Chloride 112 mls @ 56 mls/hr IV Q2H [facility] Stop: 01/19/20 13:59 Last Admin: 01/19/20 16:25 Dose: 56 mls/hr Documented by: Calcium Gluconate 2 gm/ Sodium (Chloride) 120 mls @ 100 mls/hr IV ONETIME ONE Stop: 01/19/20 15:11 Last Admin: 01/19/20 14:19 Dose: 100 mls/hr Documented by: Calcium Gluconate 2 gm/ Sodium (Chloride) 120 mls @ 100 mls/hr IV ONETIME ONE Stop: 01/19/20 19:03 Last Admin: 01/19/20 18:44 Dose: 100 mls/hr Documented by: Calcium Gluconate 2 gm/ Sodium (Chloride) 120 mls @ 100 mls/hr IV ONETIME ONE Stop: 01/20/20 09:11 Last Admin: 01/20/20 07:29 Dose: 100 mls/hr Documented by: Calcium Gluconate 2 gm/ Sodium (Chloride) 120 mls @ 60 mls/hr IV ONETIME ONE Stop: 01/20/20 14:59 Last Admin: 01/20/20 13:01 Dose: 60 mls/hr Documented by: Calcium Gluconate 2 gm/ Sodium (Chloride) 120 mls @ 100 mls/hr IV ONETIME ONE Stop: 01/21/20 10:11 Last Admin: 01/21/20 09:09 Dose: 100 mls/hr Documented by: Lidocaine HCl (Xylocaine-Mpf 1%) 2 ml INJECT ONETIME ONE Stop: 01/18/20 05:30 Last Admin: 01/18/20 06:08 Dose: 2 ml Documented by: Lidocaine HCl (Xylocaine-Mpf 1%) Confirm Administered Dose 5 ml .ROUTE .STK-MED ONE Stop: 01/18/20 05:56 Last Admin: 01/18/20 06:36 Dose: Not Given Documented by: Lidocaine HCl (Xylocaine-Mpf 1%) 4 ml INJECT ONETIME ONE Stop: 01/18/20 18:50 Last Admin: 01/18/20 19:14 Dose: 4 ml Documented by: Potassium Chloride (Klor-Con M20) 20 meq PO ONETIME ONE Stop: 01/19/20 00:50 Last Admin: 01/19/20 01:25 Dose: 20 meq Documented by: Potassium Chloride (Klor-Con M20) 20 meq PO ONETIME ONE Stop: 01/19/20 06:24 Last Admin: 01/19/20 06:48 Dose: 20 meq Documented by: Potassium Chloride (Klor-Con M20) 40 meq PO ONETIME ONE Stop: 01/19/20 09:01 Last Admin: 01/19/20 09:55 Dose: 40 meq Documented by: Potassium Chloride (Klor-Con M20) 40 meq PO ONETIME ONE Stop: 01/19/20 14:01 Last Admin: 01/19/20 14:22 Dose: 40 meq Documented by: Potassium Chloride (Klor-Con M20) 40 meq PO ONETIME ONE Stop: 01/19/20 17:53 Last Admin: 01/19/20 18:44 Dose: 40 meq Documented by: Potassium Chloride (Klor-Con M20) 40 meq PO ONETIME ONE Stop: 01/20/20 06:23 Last Admin: 01/20/20 08:32 Dose: 40 meq Documented by: Potassium Chloride (Klor-Con M20) 40 meq PO ONETIME ONE Stop: 01/20/20 12:46 Last Admin: 01/20/20 13:00 Dose: 40 meq Documented by: Potassium Chloride (Klor-Con M20) 40 meq PO ONETIME ONE Stop: 01/21/20 08:48 Last Admin: 01/21/20 09:54 Dose: 40 meq Documented by: - Exam Quality Assessment: DVT Prophylaxis General: Alert, Oriented, Cooperative, Mild Distress Lungs: Clear to Auscultation, Normal Respiratory Effort Cardiovascular: Regular Rate, Regular Rhythm, No Murmurs GI/Abdominal Exam: Soft, Non-Tender, No Organomegaly, No Distention Extremities: Non-Tender, No Pedal Edema Sepsis Event Note - Evaluation Sepsis Screening Result: No Definite Risk - Focused Exam Vital Signs: Vital Signs Temp Pulse Resp BP BP Pulse Ox 01/21/20 14:38 97.6 F 55 L 16 168/68 H 95 01/21/20 11:00 97.3 F 56 L 16 148/58 H 95 01/21/20 08:10 143/65 H - Problem List Review Problem List Initiated/Reviewed/Updated: Yes - My Orders Last 24 Hours: My Active Orders 01/21/20 19:08 BASIC METABOLIC PANEL,BMP [CHEM] Stat 01/22/20 05:00 BASIC METABOLIC PANEL,BMP [CHEM] Timed CALCIUM IONIZED,ISTAT [POC] DAILY CALCIUM IONIZED,ISTAT [POC] DAILY CBC WITH AUTO DIFF [HEME] Timed - Plan Plan:: ASSESSMENT AND PLAN: Hypokalemia -oral potassium replacement -Reassess potassium level this afternoon and in a.m. Hypocalcemia-MRI of the brain and lumbar spine were unremarkable - Replacement of calcium as appropriate - Telemetry monitoring - PTH pending C. difficile colitis-he had a dental infection within the past several weeks and did receive oral antibiotic therapy as the likely underlying cause. -Vancomycin 125 mg p.o. every 6 hours DISPOSITION: Pending but anticipating 2-4 day stay
[2020-01-21] MEDS ORDERED: Hydrochlorothiazide 12.5 MG Cap PO ONE (21:28)
[2020-01-22] MEDS: Clindamycin HCl 150 MG Cap PO SCH ×2 (00:59→08:08)
[2020-01-22] MEDS: Vancomycin 250 MG/5 ML ML Oral Solution PO SCH ×2 (05:25→09:05)
[2020-01-22 08:06] VITALS: BP 144/65; PULSE 64
[2020-01-22] MEDS: Calcium Carbonate/Vitamin D3 1500 MG-400 Units Tab PO SCH (08:07)
[2020-01-22] MEDS: Lactobacillus Rhamnosus GG (Probiotic) Cap PO SCH (08:07)
[2020-01-22] MEDS: Enoxaparin 40 MG/0.4 ML Syringe SUBCUT SCH (08:08)
[2020-01-22] MEDS: Hydrochlorothiazide 12.5 MG Cap PO SCH (08:08)
[2020-01-22] MEDS: Lisinopril 10 MG Tab PO SCH (08:08)
[2020-01-22] MEDS: Calcium Carbonate 500 MG Tab.Chew PO PRN (08:08)
[2020-01-22] MEDS ORDERED: Potassium Chloride 20 MEQ Tab.ER PO ONE (09:00)
--- NOTE | 2020-01-22 12:33 | PCM.DCSUM1 ---
Discharge Summary - Hospital Course Brief History: Mr. Daley is a 74-year-old gentleman who was admitted through the emergency department with weakness and diarrhea secondary to C. difficile colitis and underlying hypokalemia and hypocalcemia. - Discharge Data Discharge Date: 01/22/20 Discharge Disposition: Home, Self-Care 01 Condition: Stable - Referral to Home Health Primary Care Physician: Van Burnett NP - Discharge Diagnosis/Problem(s) (1) Hypocalcemia SNOMED Code(s): 4037827 ICD Code: E83.51 - HYPOCALCEMIA Status: Acute (2) Clostridioides difficile infection SNOMED Code(s): 603356604 ICD Code: A49.8 - OTHER BACTERIAL INFECTIONS OF UNSPECIFIED SITE Status: Acute (3) Diarrhea SNOMED Code(s): 54354461 ICD Code: R19.7 - DIARRHEA, UNSPECIFIED Status: Acute (4) Hypokalemia SNOMED Code(s): 44950276 ICD Code: E87.6 - HYPOKALEMIA Status: Acute (5) CKD (chronic kidney disease), stage III SNOMED Code(s): 460552786 ICD Code: N18.30 - CHRONIC KIDNEY DISEASE, STAGE 3 UNSPECIFIED Status: Chronic - Patient Summary/Data Hospital Course: Marcello Daley is a 74 yo male admitted to [facility] on 18 January 2020 around 0430. The patient initially presented with significant low thoracic back pain that was associated with some paresthesias into the bilateral lower extremities. The patient had noted this pain for about 4 days or so. He attributed this to clearing leaves in the back yard. The patient came to the ED this evening because the pain had become unbearable. In the course of his evaluation the ED attending noted that the patient was scheduled for a colonoscopy on [address] Freitas, but labs pre-procedure, had yet to be done. The patient had a CBC and chemistry performed. The CBC revealed a WBC of 26k, the chemistries showed a profound hypokalemia and hypocalcemia. RN's in the ED doing the lab draw noted tetanic activity with the placement of the tourniquet for phlebotomy. He also reported a history of diarrhea for the past 2 weeks with multiple stools per day. He was started on IV fluids for hydration and started vigorous potassium and calcium replacement. Stool studies were obtained and did return positive for C. difficile. He was started on oral antibiotic therapy with vancomycin 125 mg every 6 hours. It was felt most likely that his severe hypokalemia and hypocalcemia were secondary to his significant diarrhea over the past 2 weeks. By the time of discharge potassium and calcium levels had improved significantly and he will be discharged home with oral and potassium replacement. Diarrhea also improved significantly but had not totally resolved by the time of discharge. He will be discharged home with an additional 10-day course of oral vancomycin. MRI of the brain and lumbar spine were obtained and showed no acute abnormalities to explain his pain. Activity will be as tolerated and he will be on a soft low residue diet. Follow-up appointment will be scheduled with his primary care provider within 1 week, BMP will be obtained at the time of follow-up appointment. - Patient Instructions Diet: Usual Diet as Tolerated Activity: As Tolerated Other/Special Instructions: Please schedule follow-up appointment with primary care provider within 1 week. BMP should be obtained at the time of follow-up appointment. - Discharge Plan *PRESCRIPTION DRUG MONITORING PROGRAM REVIEWED*: Not Applicable *COPY OF PRESCRIPTION DRUG MONITORING REPORT IN PATIENT NELLIE: Not Applicable Prescriptions/Med Rec: Calcium Carbonate/Vitamin D3 [Caltrate 600+D 1500 MG-400 Units] 1 tab PO BID #60 tablet clindamycin HCL [Cleocin HCl] 300 mg PO QID #20 capsule Lactobacillus Rhamnosus GG [Culturelle] 1 cap PO BID #60 cap Potassium Chloride [K-Tab ER] 20 meq PO BID #60 tablet.er Vancomycin [Vancocin 250 MG/5 ML Soln] 125 mg PO QID #100 ml Home Medications: Home Meds Omeprazole 20 mg PO QAM 02/24/14 [History] atorvaSTATin Calcium [Atorvastatin Calcium] 20 mg PO BEDTIME 11/30/17 [History] Aspirin [Halfprin] 81 mg PO DAILY 01/15/20 [History] Lisinopril/Hydrochlorothiazide [Lisinopril-Hctz 10-12.5 mg Tab] 1 each PO DAILY 01/15/20 [History] Naproxen [Naprosyn] 500 mg PO BID PRN 01/15/20 [History] Triamcinolone Acetonide [Kenalog 0.1% Crm] 1 applic TOP BID 01/15/20 [History] Calcium Carbonate/Vitamin D3 [Caltrate 600+D 1500 MG-400 Units] 1 tab PO BID #60 tablet 01/22/20 [Rx] Lactobacillus Rhamnosus GG [Culturelle] 1 cap PO BID #60 cap 01/22/20 [Rx] Potassium Chloride [K-Tab ER] 20 meq PO BID #60 tablet.er 01/22/20 [Rx] Vancomycin [Vancocin 250 MG/5 ML Soln] 125 mg PO QID #100 ml 01/22/20 [Rx] clindamycin HCL [Cleocin HCl] 300 mg PO QID #20 capsule 01/22/20 [Rx] Patient Handouts: Clostridioides Difficile Infection, [id number] Referrals: Van Burnett, DIE DESIGNER APPRENTICE [Primary Care Provider] - 01/26/20 1:00 pm (Please arrive at 1230 to have blood work drawn prior to your appointment with Van Burnett.) - Discharge Summary/Plan Comment DC Time >30 min.: No - Patient Data Vitals - Most Recent: Last Vital Signs Temp 96.8 F L 01/22/20 08:04 Pulse 64 01/22/20 08:04 Resp 16 01/22/20 08:04 BP 144/65 H 01/22/20 08:08 Pulse Ox 96 01/22/20 08:04 Weight - Most Recent: 173 lb 8 oz I&O - Last 24 hours: Intake & Output 01/21/20 01/22/20 01/22/20 22:59 06:59 14:59 Intake Total 480 400 480 Balance 480 400 480 Lab Results - Last 24 hrs: Laboratory Results - last 24 hr 01/18/20 01/21/20 01/22/20 Range/Units 19:35 19:19 05:00 WBC (4.5-11.0) K/uL RBC (4.30-5.90) M/uL Hgb (12.0-15.0) g/dL Hct (40.0-54.0) % MCV (80-98) fL MCH (27-31) pg MCHC (32-36) % Plt Count (150-400) K/uL Neut % (Auto) (36-66) % Lymph % (Auto) (24-44) % [place] % (Auto) (2-6) % Eos % (Auto) (2-4) % Baso % (Auto) (0-1) % Sodium 144 (140-148) mmol/L Potassium 3.1 L (3.6-5.2) mmol/L Chloride 106 (100-108) mmol/L Carbon Dioxide 28 (21-32) mmol/L Anion Gap 13.1 (5.0-14.0) mmol/L BUN 5 L (7-18) mg/dL Creatinine 1.0 (0.8-1.3) mg/dL Est Cr Clr Drug Dosing 70.07 mL/min Estimated GFR (MDRD) > 60 (>60) Glucose 112 H (74-106) mg/dL Calcium 7.8 L (8.5-10.1) mg/dL POC WB Ioniz Calcium 1.08 L (1.12-1.32) mmol/L Stool H. pylori Ag Negative (Negative) 01/22/20 01/22/20 Range/Units 06:13 06:13 WBC 14.3 H (4.5-11.0) K/uL RBC 4.12 L (4.30-5.90) M/uL Hgb 10.8 L (12.0-15.0) g/dL Hct 33.7 L (40.0-54.0) % MCV 82 (80-98) fL MCH 26 L (27-31) pg MCHC 32 (32-36) % Plt Count 385 (150-400) K/uL Neut % (Auto) 49 (36-66) % Lymph % (Auto) 40 (24-44) % [place] % (Auto) 8 H (2-6) % Eos % (Auto) 2 (2-4) % Baso % (Auto) 0 (0-1) % Sodium 143 (140-148) mmol/L Potassium 3.6 (3.6-5.2) mmol/L Chloride 105 (100-108) mmol/L Carbon Dioxide 29 (21-32) mmol/L Anion Gap 8.6 (5.0-14.0) mmol/L BUN 4 L (7-18) mg/dL Creatinine 1.0 (0.8-1.3) mg/dL Est Cr Clr Drug Dosing 70.07 mL/min Estimated GFR (MDRD) > 60 (>60) Glucose 98 (74-106) mg/dL Calcium 7.8 L (8.5-10.1) mg/dL POC WB Ioniz Calcium (1.12-1.32) mmol/L Stool H. pylori Ag (Negative) Med Orders - Current: Current Medications Acetaminophen (Tylenol) 650 mg PO Q4H PRN PRN Reason: Pain (Mild 1-3)/fever Last Admin: 01/19/20 12:30 Dose: 650 mg Documented by: Calcium Carbonate (Caltrate 600+D 1500 Mg-400 Units) 1 tab PO BID [facility] Last Admin: 01/22/20 08:07 Dose: 1 tab Documented by: Calcium Carbonate/Glycine (Tums) 500 mg PO Q2H PRN PRN Reason: Indigestion Last Admin: 01/22/20 08:08 Dose: 500 mg Documented by: Clindamycin HCl (Cleocin) 300 mg PO Q6H [facility] Last Admin: 01/22/20 08:08 Dose: 300 mg Documented by: Enoxaparin Sodium (Lovenox) 40 mg SUBCUT DAILY [facility] Last Admin: 01/22/20 08:08 Dose: 40 mg Documented by: Hydrochlorothiazide (Hydrochlorothiazide) 12.5 mg PO DAILY [facility] Last Admin: 01/22/20 08:08 Dose: 12.5 mg Documented by: Lactobacillus Rhamnosus (Culturelle) 1 cap PO BID [facility] Last Admin: 01/22/20 08:07 Dose: 1 cap Documented by: Lisinopril (Prinivil) 10 mg PO DAILY [facility] Last Admin: 01/22/20 08:08 Dose: 10 mg Documented by: Ondansetron HCl (Zofran Odt) 4 mg PO Q6H PRN PRN Reason: Nausea able to take PO Ondansetron HCl (Zofran) 4 mg IV Q6H PRN PRN Reason: Nausea/Vomiting Oxycodone HCl (Oxycodone) 5 mg PO Q4H PRN PRN Reason: Pain Last Admin: 01/20/20 09:44 Dose: 5 mg Documented by: Vancomycin HCl (Vancocin 250 Mg/5 Ml Soln) 125 mg PO QID [facility] Last Admin: 01/22/20 09:05 Dose: 125 mg Documented by: Discontinued Medications Calcium Gluconate (Calcium Gluconate) Confirm Administered Dose 1 gm .ROUTE .STK-MED ONE Stop: 01/18/20 05:42 Last Admin: 01/18/20 05:52 Dose: Not Given Documented by: Gadoteridol (Prohance) 15 ml IV .A DIRECTED CHANELL Stop: 01/19/20 13:00 Last Admin: 01/19/20 11:58 Dose: 15 ml Documented by: Gadoteridol (Prohance) 15 ml IV .A DIRECTED CHANELL Stop: 01/20/20 11:00 Last Admin: 01/20/20 12:14 Dose: 15 ml Documented by: Hydrochlorothiazide (Hydrochlorothiazide) 12.5 mg PO ONETIME ONE Stop: 01/21/20 21:29 Last Admin: 01/21/20 22:42 Dose: 12.5 mg Documented by: Calcium Gluconate 2 gm/ Sodium (Chloride) 120 mls @ 100 mls/hr IV ONETIME ONE Stop: 01/18/20 06:35 Last Admin: 01/18/20 05:57 Dose: 100 mls/hr Documented by: Potassium Chloride 20 meq/ (Premix) 100 mls @ 50 mls/hr IV ONETIME ONE Stop: 01/18/20 07:24 Last Admin: 01/18/20 05:58 Dose: 50 mls/hr Documented by: Calcium Gluconate 2 gm/ Sodium (Chloride) 120 mls @ 100 mls/hr IV ONETIME ONE Stop: 01/18/20 14:41 Last Admin: 01/18/20 13:16 Dose: 100 mls/hr Documented by: Potassium Chloride/Sodium Chloride (Normal Saline With 20 Meq Kcl) 1,000 mls @ 100 mls/hr IV ASDIRECTED [facility] Last Admin: 01/20/20 07:28 Dose: 100 mls/hr Documented by: Potassium Chloride 20 meq/ (Premix) 0 mls @ 50 mls/hr IV ONETIME ONE Stop: 01/18/20 18:48 Last Admin: 01/18/20 19:13 Dose: 50 mls/hr Documented by: Calcium Gluconate 2 gm/ Sodium (Chloride) 120 mls @ 100 mls/hr IV ONETIME ONE Stop: 01/19/20 01:58 Last Admin: 01/19/20 01:25 Dose: 100 mls/hr Documented by: Calcium Gluconate 2 gm/ Sodium (Chloride) 120 mls @ 100 mls/hr IV ONETIME ONE Stop: 01/19/20 07:35 Last Admin: 01/19/20 06:48 Dose: 100 mls/hr Documented by: Potassium Chloride 20 meq/Lidocaine HCl 2 ml/ Sodium Chloride 112 mls @ 56 mls/hr IV Q2H CHANELL Stop: 01/19/20 13:59 Last Admin: 01/19/20 16:25 Dose: 56 mls/hr Documented by: Calcium Gluconate 2 gm/ Sodium (Chloride) 120 mls @ 100 mls/hr IV ONETIME ONE Stop: 01/19/20 15:11 Last Admin: 01/19/20 14:19 Dose: 100 mls/hr Documented by: Calcium Gluconate 2 gm/ Sodium (Chloride) 120 mls @ 100 mls/hr IV ONETIME ONE Stop: 01/19/20 19:03 Last Admin: 01/19/20 18:44 Dose: 100 mls/hr Documented by: Calcium Gluconate 2 gm/ Sodium (Chloride) 120 mls @ 100 mls/hr IV ONETIME ONE Stop: 01/20/20 09:11 Last Admin: 01/20/20 07:29 Dose: 100 mls/hr Documented by: Calcium Gluconate 2 gm/ Sodium (Chloride) 120 mls @ 60 mls/hr IV ONETIME ONE Stop: 01/20/20 14:59 Last Admin: 01/20/20 13:01 Dose: 60 mls/hr Documented by: Calcium Gluconate 2 gm/ Sodium (Chloride) 120 mls @ 100 mls/hr IV ONETIME ONE Stop: 01/21/20 10:11 Last Admin: 01/21/20 09:09 Dose: 100 mls/hr Documented by: Lidocaine HCl (Xylocaine-Mpf 1%) 2 ml INJECT ONETIME ONE Stop: 01/18/20 05:30 Last Admin: 01/18/20 06:08 Dose: 2 ml Documented by: Lidocaine HCl (Xylocaine-Mpf 1%) Confirm Administered Dose 5 ml .ROUTE .STK-MED ONE Stop: 01/18/20 05:56 Last Admin: 01/18/20 06:36 Dose: Not Given Documented by: Lidocaine HCl (Xylocaine-Mpf 1%) 4 ml INJECT ONETIME ONE Stop: 01/18/20 18:50 Last Admin: 01/18/20 19:14 Dose: 4 ml Documented by: Potassium Chloride (Klor-Con M20) 20 meq PO ONETIME ONE Stop: 01/19/20 00:50 Last Admin: 01/19/20 01:25 Dose: 20 meq Documented by: Potassium Chloride (Klor-Con M20) 20 meq PO ONETIME ONE Stop: 01/19/20 06:24 Last Admin: 01/19/20 06:48 Dose: 20 meq Documented by: Potassium Chloride (Klor-Con M20) 40 meq PO ONETIME ONE Stop: 01/19/20 09:01 Last Admin: 01/19/20 09:55 Dose: 40 meq Documented by: Potassium Chloride (Klor-Con M20) 40 meq PO ONETIME ONE Stop: 01/19/20 14:01 Last Admin: 01/19/20 14:22 Dose: 40 meq Documented by: Potassium Chloride (Klor-Con M20) 40 meq PO ONETIME ONE Stop: 01/19/20 17:53 Last Admin: 01/19/20 18:44 Dose: 40 meq Documented by: Potassium Chloride (Klor-Con M20) 40 meq PO ONETIME ONE Stop: 01/20/20 06:23 Last Admin: 01/20/20 08:32 Dose: 40 meq Documented by: Potassium Chloride (Klor-Con M20) 40 meq PO ONETIME ONE Stop: 01/20/20 12:46 Last Admin: 01/20/20 13:00 Dose: 40 meq Documented by: Potassium Chloride (Klor-Con M20) 40 meq PO ONETIME ONE Stop: 01/21/20 08:48 Last Admin: 01/21/20 09:54 Dose: 40 meq Documented by: Potassium Chloride (Klor-Con M20) 40 meq PO ONETIME ONE Stop: 01/21/20 21:29 Last Admin: 01/21/20 22:42 Dose: 40 meq Documented by: Potassium Chloride (Klor-Con M20) 40 meq PO ONETIME ONE Stop: 01/22/20 09:01 Last Admin: 01/22/20 09:05 Dose: 40 meq Documented by: - Exam Quality Assessment: Reports: DVT Prophylaxis General: Reports: Alert, Oriented, Cooperative, Mild Distress Lungs: Reports: Clear to Auscultation, Normal Respiratory Effort Cardiovascular: Reports: Regular Rate, Regular Rhythm, No Murmurs GI/Abdominal Exam: Soft, Non-Tender, No Organomegaly, No Distention
== END 2020-01-22 14:16 | disposition home or self-care (01) | DRG 372 ==
LOC: JP.ED 01:18 → JP.ICU 04:57 → JP.MS 01-20 13:28
PROVIDERS: ADMIT Family Medicine; ATTEND Hospitalist
DX: A04.72 Enterocolitis due to Clostridium difficile, not specified as recurrent (principal); R29.0 Tetany; E87.6 Hypokalemia; E83.51 Hypocalcemia; N18.30 Chronic kidney disease, stage 3 unspecified; M54.5 Low back pain; H54.7 Unspecified visual loss; Z86.73 Personal history of transient ischemic attack (TIA), and cerebral infarction without residual deficits; E78.00 Pure hypercholesterolemia, unspecified; I10 Essential (primary) hypertension; K21.9 Gastro-esophageal reflux disease without esophagitis; G62.9 Polyneuropathy, unspecified; T36.95XA Adverse effect of unspecified systemic antibiotic, initial encounter; M54.6 Pain in thoracic spine; B99.9 Unspecified infectious disease; R20.2 Paresthesia of skin; Z79.82 Long term (current) use of aspirin; Z98.49 Cataract extraction status, unspecified eye; Z90.49 Acquired absence of other specified parts of digestive tract; Z87.891 Personal history of nicotine dependence; Z79.899 Other long term (current) drug therapy
CPT/HCPCS: 36415; 70553; 70553-26; 72158; 72158-26; 80048; 80053; 80307; 82310; 82330; 83735; 83970; 84132; 84443; 85025; 85027; 85060; 85610; 86140; 87046; 87177; 87209; 87338; 87493; 87899; 89055; 93010; 99284-25; A9270-GY; A9579; J0610; J1650; J2001; J3480

== ENCOUNTER 2020-10-28 07:03 | Day surgery (SDC) | payer MEDICARE ==
[2020-10-28] MEDS ORDERED: fentaNYL 100 MCG/2 ML SDV ONE (07:27)
[2020-10-28] MEDS ORDERED: Midazolam 1 MG/ML 2 ML SDV ONE (07:27)
[2020-10-28] MEDS ORDERED: Propofol 200 MG/20 ML SDV ONE (07:27)
[2020-10-28] MEDS ORDERED: Sodium Chloride 0.9% 1,000 ML IV SCH (07:30)
[2020-10-28 09:52] VITALS: BP 101/72; PULSE 81
--- NOTE | 2020-10-30 21:45 | OR ---
DATE OF PROCEDURE: 10/28/2020 SURGEON: Liban Bourgeois MD PROCEDURE: Colonoscopy. FINDINGS: 1. Cecal polyp, approximately 5 mm, completely removed using hot snare wire device. 2. Ascending colon polyp, approximately 5 mm, completely removed using cold biopsy forceps. COMPLICATIONS: None. WORK ENVIRONMENT SAFETY INSPECTOR: None. ANESTHESIA: MAC. PREOPERATIVE DIAGNOSIS: Screening colonoscopy. POSTOPERATIVE DIAGNOSIS: Screening colonoscopy. RISKS: Risks, benefits, alternatives, and limitations including but not limited to infection, bleeding, perforation, false positives, false negatives were explained to the patient and he wished to proceed. PROCEDURE IN DETAIL: The patient was placed in left lateral decubitus position. Digital rectal exam was performed without abnormality. Scope was introduced and advanced atraumatically to the ileocecal valve. A photo was taken of the appendiceal orifice. Within the cecum, the aforementioned polyp was identified and completely removed. This was also true with the ascending colon polyp. After both these polyps were removed, no abnormal bleeding was noted. The remainder of the scope was brought back and inspected without abnormality. No abnormalities on retroflexion. Greater than 8 minutes was spent removing the scope. The prep was acceptable, approximately 90% of the luminal surface could be seen. The patient tolerated the procedure well. Liban Bourgeois MD /[id number]
== END 2020-10-28 10:13 | disposition home or self-care (01) ==
LOC: JP.SDS 07:03
PROVIDERS: ATTEND Surgery
DX: Z12.11 Encounter for screening for malignant neoplasm of colon (principal); D12.0 Benign neoplasm of cecum; K63.89 Other specified diseases of intestine; I10 Essential (primary) hypertension; K21.9 Gastro-esophageal reflux disease without esophagitis; F17.200 Nicotine dependence, unspecified, uncomplicated; Z86.010 Personal history of colon polyps
CPT/HCPCS: 45380; 45385; J2250; J2704; J3010; J7030; 88305

== ENCOUNTER 2020-11-19 09:53 | Emergency (ER) | payer MEDICARE ==
[2020-11-19 10:16] VITALS: PULSE 56
[2020-11-19] MEDS ORDERED: Meclizine 25 MG Tab PO ONE (10:53)
--- NOTE | 2020-11-19 11:04 | EDM.PDOC ---
ED HPI GENERAL MEDICAL PROBLEM - General Chief Complaint: Neurological Problem Stated Complaint: DIZZY/VERITGO? Time Seen by Provider: 11/19/20 10:45 Source of Information: Reports: Patient, Old Records, RN History Limitations: Reports: No Limitations - History of Present Illness INITIAL COMMENTS - FREE TEXT/NARRATIVE: 75 yo male sat up in bed this AM and felt like the bed tipped to the side. He had mild nausea, but no diaphoresis with this. He felt the same way each time he tried to sit up. Eventually he realized he had to urinate so he forced himself to a sitting position and waited out the dizziness and it mostly went away. He was then able to get out of bed and ambulate. His sx's are mostly gone on arrival. Does have a pHx of CVA, and tobacco use and HTN Onset: Today, Sudden Onset Date: 11/19/20 Duration: Minutes:, Improving Location: Reports: Head Quality: Reports: Other (no pain) Severity: Moderate Improves with: Reports: Other (time and changes in head position) Worsens with: Reports: Other (? sitting up from lying position) Context: Reports: Other (See HPI) Associated Symptoms: Reports: Nausea/Vomiting (no vomiting). Denies: Confusion, Chest Pain, Diaphoresis, Fever/Chills, Headaches, Seizure, Syncope Treatments VIDEO MANAGER: Reports: Other (see below) (none) - Related Data Allergies Allergy/AdvReac Type Severity Reaction Status Date / Time No Known Allergies Allergy Verified 11/19/20 10:25 Home Meds: Home Meds Omeprazole 20 mg PO BEDTIME 02/24/14 [History] atorvaSTATin Calcium [Atorvastatin Calcium] 20 mg PO BEDTIME 11/30/17 [History] Aspirin [Halfprin] 81 mg PO BEDTIME 01/15/20 [History] Lisinopril/Hydrochlorothiazide [Lisinopril-Hctz 10-12.5 mg Tab] 1 each PO DAILY 01/15/20 [History] Naproxen [Naprosyn] 500 mg PO BID PRN 01/15/20 [History] Triamcinolone Acetonide [Kenalog 0.1% Crm] 1 applic TOP BID 01/15/20 [History] Lactobacillus Rhamnosus GG [Culturelle] 1 cap PO BID #60 cap 01/22/20 [Rx] Past Medical History HEENT History: Reports: Cataract, Impaired Vision Cardiovascular History: Reports: High Cholesterol, Hypertension Respiratory History: Reports: None Gastrointestinal History: Reports: Cholelithiasis, Chronic Diarrhea, Colon Polyp, GERD Genitourinary History: Reports: None Musculoskeletal History: Reports: Fracture Other Musculoskeletal History: cracked rib Neurological History: Reports: Neuropathy, Peripheral, Seizure, TIA, Vertigo Endocrine/Metabolic History: Reports: Other (See Below) Other Endocrine/Metabolic History: possibly pre-diabetic Oncologic (Cancer) History: Reports: Leukemia, Other (See Below) Other Oncologic History: CLL - Infectious Disease History Infectious Disease History: Reports: Chicken Pox, Measles - Past Surgical History HEENT Surgical History: Reports: Cataract Surgery GI Surgical History: Reports: Appendectomy, Cholecystectomy, Colonoscopy, EGD Male Surgical History: Reports: Prostate Biopsy Endocrine Surgical History: Reports: None Social & Family History - Family History Family Medical History: No Pertinent Family History - Tobacco Use Tobacco Use Status *Q: Former Tobacco User Used Tobacco, but Quit: Yes Month/Year Tobacco Last Used: 0 - Caffeine Use Caffeine Use: Reports: Coffee - Recreational Drug Use Recreational Drug Use: No - Living Situation & Occupation Living situation: Reports: , with Spouse Occupation: Employed ED ROS GENERAL - Review of Systems Review Of Systems: See Below Constitutional: Reports: No Symptoms HEENT: Reports: Vertigo Respiratory: Reports: No Symptoms Cardiovascular: Reports: No Symptoms GI/Abdominal: Reports: Nausea (mild, transient). Denies: Diarrhea, Vomiting : Reports: No Symptoms Musculoskeletal: Reports: No Symptoms Skin: Reports: No Symptoms. Denies: Diaphoresis Neurological: Reports: Dizziness (transient vertigo). Denies: Headache, Trouble Speaking, Change in Speech Psychiatric: Reports: No Symptoms ED EXAM, NEURO - Physical Exam Exam: See Below Exam Limited By: No Limitations General Appearance: Alert, WD/WN, No Apparent Distress Eye Exam: Bilateral Eye: EOMI, Normal Inspection, PERRL Ears: Normal External Exam, Normal Canal, Hearing Grossly Normal, Normal TMs Nose: Normal Inspection, No Blood Throat/Mouth: Normal Inspection, Normal Lips, Normal Oropharynx, Normal Voice, No Airway Compromise Head Exam: Atraumatic, Normocephalic Neck: Normal Inspection Respiratory/Chest: No Respiratory Distress, Lungs Clear, Normal Breath Sounds, Chest Non-Tender Cardiovascular: Regular Rate, Rhythm, No Edema. No: Irregularly Irregular Neurological: Alert, Normal Mood/Affect, CN II-XII Intact, No Motor/Sensory Deficits, Oriented x 3 Extremities: Normal Inspection Psychiatric: Normal Affect, Normal Mood Skin Exam: Warm, Dry, Intact, Normal Color, No Rash Course - Vital Signs Last Recorded V/S: Last Vital Signs Temp 36.6 C 11/19/20 10:24 Pulse 56 L 11/19/20 11:04 Resp 16 11/19/20 11:04 BP 154/89 H 11/19/20 11:04 Pulse Ox 98 11/19/20 11:04 - Orders/Labs/Meds Meds: Medications Discontinued Medications Generic Name Dose Route Start Last Admin Trade Name Freq PRN Reason Stop Dose Admin Meclizine HCl 25 mg 11/19/20 10:53 11/19/20 11:04 Meclizine 25 Mg Tab PO 11/19/20 10:54 25 mg ONETIME ONE Administration - Re-Assessments/Exams Free Text/Narrative Re-Assessment/Exam: 11/19/20 11:44 His sx's are reduced with meclizine. Departure - Departure Time of Disposition: 11:44 Disposition: Home, Self-Care 01 Condition: Good Clinical Impression: BPV (benign positional vertigo) Qualifiers: Laterality: unspecified laterality Qualified Code(s): H81.10 - Benign paroxysmal vertigo, unspecified ear - Discharge Information *PRESCRIPTION DRUG MONITORING PROGRAM REVIEWED*: Not Applicable *COPY OF PRESCRIPTION DRUG MONITORING REPORT IN PATIENT NELLIE: Not Applicable Instructions: Benign Positional Vertigo Referrals: Van Burnett NP [Primary Care Provider] - Forms: ED Department Discharge Additional Instructions: Take meclizine every 6 hrs as needed for vertigo. Recheck if worse. Sepsis Event Note (ED) - Evaluation Sepsis Screening Result: No Definite Risk - Focused Exam Vital Signs: Vital Signs Temp Pulse Resp BP Pulse Ox 11/19/20 11:04 56 L 16 154/89 H 98 11/19/20 10:24 36.6 C 56 L 18 180/86 H 98 11/19/20 10:15 36.6 C 56 L 18 180/86 H 98
[2020-11-19 11:05] VITALS: BP 154/89
== END 2020-11-19 11:53 | disposition home or self-care (01) ==
LOC: JP.ED 09:53
DX: H81.10 Benign paroxysmal vertigo, unspecified ear (principal); E78.00 Pure hypercholesterolemia, unspecified; I10 Essential (primary) hypertension; Z86.73 Personal history of transient ischemic attack (TIA), and cerebral infarction without residual deficits; Z79.82 Long term (current) use of aspirin; Z79.899 Other long term (current) drug therapy; Z87.891 Personal history of nicotine dependence
CPT/HCPCS: 99283; A9270

== ENCOUNTER 2022-01-07 08:07 | Emergency (ER) | payer MEDICARE ==
[2022-01-07] MEDS ORDERED: Sodium Chloride 0.9% 10 ML Syringe FLUSH PRN (08:12)
[2022-01-07 08:24] VITALS: BP 171/90; PULSE 70
[2022-01-07 08:57] LABS: ESTIMATED GFR 52 mL/min (>60); TROPONIN I HIGH SENSITIVITY 7.1 pg/mL (<=60.3)
== END 2022-01-07 09:00 ==
LOC: JP.ED 08:07
DX: I63.9 Cerebral infarction, unspecified (principal); E78.00 Pure hypercholesterolemia, unspecified; I10 Essential (primary) hypertension; Z79.899 Other long term (current) drug therapy; Z79.82 Long term (current) use of aspirin; Z90.49 Acquired absence of other specified parts of digestive tract; Z20.822 Contact with and (suspected) exposure to COVID-19
CPT/HCPCS: 36415; 70450; 80053; 83605; 84484; 85025; 85610; 85730; 93005; 99291; J3490; U0002

== ENCOUNTER 2022-10-07 16:21 | Emergency (ER) | payer MEDICARE ==
[2022-10-07] MEDS ORDERED: Sodium Chloride 0.9% 10 ML Syringe FLUSH PRN (16:48)
[2022-10-07] MEDS ORDERED: Adenosine 6 MG/2 ML SDV IVPUSH ONE ×2 (16:49)
[2022-10-07 16:55] LABS: HEMATOCRIT 39.3 % (38.4-49.7); HEMOGLOBIN 13.5 g/dL (12.9-16.9); MEAN CORPUSCULAR HEMOGLOBIN 28.1 pg (31.6-35.5); MEAN CORPUSCULAR HGB CONC 34.4 g/dL (31.6-35.5); MEAN CORPUSCULAR VOLUME 81.7 fL (81.4-99.0); PLATELET COUNT,PLT 248 K/uL (130-375); RED BLOOD CELL COUNT 4.81 M/uL (4.14-5.76); WHITE BLOOD CELL COUNT,WBC 13.2 K/uL (3.2-11.0)
[2022-10-07] MEDS ORDERED: Sodium Chloride 0.9% 1,000 ML IV SCH (17:00)
[2022-10-07 17:15] LABS: ATYPICAL LYMPHOCYTES FEW; BAND ABSOLUTE MAN 0.26 K/uL; BAND PERCENT MAN 2 % (5-11); EOSINOPHILS ABSOLUTE MAN 0.53 K/uL (0.00-0.40); EOSINOPHILS PERCENT MAN 4 % (2-4); LYMPHOCYTES ABSOLUTE MAN 5.02 K/uL (0.8-3.3); LYMPHOCYTES PERCENT MAN 38 % (24-44); MONOCYTES ABSOLUTE MAN 0.66 K/uL (0.20-0.90); MONOCYTES PERCENT MAN 5 % (2-6); NEUTROPHILS ABSOLUTE MAN 6.73 K/uL (1.0-7.6); SEG NEUTROPHILS PERCENT MAN 51 % (36-66)
[2022-10-07 17:21] LABS: CREATININE 1.5 mg/dL (0.8-1.3); EST CRCL DRUG DOSING (CG) 42.58 mL/min; TROPONIN I HIGH SENSITIVITY 9.8 pg/mL (<=60.3)
[2022-10-07 17:23] LABS: ANION GAP 13.9 mmol/L (5.0-14.0); POTASSIUM,K 2.9 mmol/L (3.6-5.2)
[2022-10-07] MEDS ORDERED: Potassium Chloride 10 MEQ in Premix Bag 1 BAG IV ONE (17:23)
[2022-10-07] MEDS ORDERED: Potassium Chloride 20 MEQ Tab.ER PO ONE (17:23)
[2022-10-07 17:28] LABS: MAGNESIUM 0.9 mg/dL (1.8-2.4); TSH ULTRASENSITIVE 3.016 uIU/mL (0.358-3.740)
[2022-10-07] MEDS ORDERED: Magnesium Sulfate/Water 2 GM in Premix Bag 1 BAG IV ONE (17:37)
[2022-10-07 18:23] VITALS: BP 119/67; PULSE 63
== END 2022-10-07 19:40 | disposition home or self-care (01) ==
LOC: JP.ED 16:21
DX: I47.1 Supraventricular tachycardia (principal); E87.6 Hypokalemia; F30.8 Other manic episodes; E83.42 Hypomagnesemia; I10 Essential (primary) hypertension; K21.9 Gastro-esophageal reflux disease without esophagitis; E78.00 Pure hypercholesterolemia, unspecified; Z86.73 Personal history of transient ischemic attack (TIA), and cerebral infarction without residual deficits; Z79.899 Other long term (current) drug therapy
CPT/HCPCS: 36415; 80048; 83605; 83735; 84443; 84484; 85025; 93005; 96361; 96365; 96366; 96368; 96375; 99283-25; A9270-GY; J0153; J3475; J3480; J3490; J7030

== ENCOUNTER 2023-01-26 16:16 | Emergency (ER) | payer MEDICARE ==
[2023-01-26] MEDS ORDERED: Sodium Chloride 0.9% 10 ML Syringe FLUSH PRN (16:26)
[2023-01-26] MEDS ORDERED: Sodium Chloride 0.9% 1,000 ML IV ONE (16:27)
[2023-01-26 16:37] LABS: BASOPHILS ABSOLUTE AUTO 0.18 K/uL (0.00-0.10); BASOPHILS PERCENT AUTO 1.6 % (0.1-1.3); EOSINOPHILS ABSOLUTE AUTO 0.39 K/uL (0.00-0.40); EOSINOPHILS PERCENT AUTO 3.5 % (0.0-5.4); HEMATOCRIT 41.4 % (38.4-49.7); HEMOGLOBIN 13.9 g/dL (12.9-16.9); IMMATURE GRAN ABSOLUTE AUTO 0.04 K/uL (0.00-0.23); IMMATURE GRAN PERCENT AUTO 0.4 % (0.0-0.7); LYMPHOCYTES ABSOLUTE AUTO 3.57 K/uL (0.8-3.3); LYMPHOCYTES PERCENT AUTO 32.3 % (11.4-47.7); MEAN CORPUSCULAR HEMOGLOBIN 27.5 pg (31.6-35.5); MEAN CORPUSCULAR HGB CONC 33.6 g/dL (31.6-35.5); MONOCYTES ABSOLUTE AUTO 1.01 K/uL (0.20-0.90); MONOCYTES PERCENT AUTO 9.1 % (3.3-12.6); NEUTROPHILS ABSOLUTE AUTO 5.86 K/uL (1.0-7.6); NEUTROPHILS PERCENT AUTO 53.1 % (40.0-78.1); PLATELET COUNT,PLT 279 K/uL (130-375); RED BLOOD CELL COUNT 5.05 M/uL (4.14-5.76); WHITE BLOOD CELL COUNT,WBC 11.1 K/uL (3.2-11.0)
[2023-01-26 17:05] LABS: ALANINE AMINOTRANSFERASE,ALT 20 U/L (12-78); ALBUMIN 3.3 g/dL (3.4-5.0); ALKALINE PHOSPHATASE 100 U/L (46-116); ASPARTATE AMNIOTRANSFERASE,AST 28 U/L (15-37); BILIRUBIN TOTAL 0.7 mg/dL (0.2-1.0); BLOOD UREA NITROGEN,BUN 15 mg/dL (7-18); CARBON DIOXIDE,CO2 28 mmol/L (21-32); CHLORIDE,CL 104 mmol/L (100-108); CREATININE 1.3 mg/dL (0.8-1.3); EST CRCL DRUG DOSING (CG) 49.13 mL/min; ESTIMATED GFR 57 mL/min (>60); GLUCOSE RANDOM 117 mg/dL (74-106); MAGNESIUM 0.7 mg/dL (1.8-2.4); POTASSIUM,K 3.3 mmol/L (3.6-5.2); PROTEIN TOTAL,TP 6.5 g/dL (6.4-8.2); SODIUM,NA 143 mmol/L (140-148)
[2023-01-26 17:09] LABS: ANION GAP 14.3 mmol/L (5.0-14.0)
[2023-01-26 17:11] LABS: CALCIUM 6.3 mg/dL (8.5-10.1)
[2023-01-26] MEDS ORDERED: Magnesium Sulfate/Water 2 GM in Premix Bag 1 BAG IV ONE (17:21)
[2023-01-26] MEDS ORDERED: Calcium Gluconate 10% 1 GM/10 ML SDV IVPUSH ONE (17:23)
[2023-01-26] MEDS ORDERED: Calcium Gluconate 2 GM in Sodium Chloride 0.9% 100 ML IV ONE (17:30)
[2023-01-26 19:32] VITALS: BP 150/80; PULSE 61
== END 2023-01-26 19:36 | disposition home or self-care (01) ==
LOC: JP.ED 16:16
DX: I47.10 Supraventricular tachycardia, unspecified (principal); E83.42 Hypomagnesemia; E87.6 Hypokalemia; E83.51 Hypocalcemia; E78.00 Pure hypercholesterolemia, unspecified; I10 Essential (primary) hypertension; K21.9 Gastro-esophageal reflux disease without esophagitis; Z79.899 Other long term (current) drug therapy; Z79.82 Long term (current) use of aspirin
CPT/HCPCS: 36415; 80053; 82330; 83735; 84484; 85025; 93005; 93010; 96361; 96365; 96368; 99284; 99285-25; J0612; J3475; J3490; J7030

== ENCOUNTER 2023-03-01 04:48 | Emergency (ER) | payer MEDICARE ==
[2023-03-01 05:30] LABS: BASOPHILS ABSOLUTE AUTO 0.12 K/uL (0.00-0.10); BASOPHILS PERCENT AUTO 1.2 % (0.1-1.3); EOSINOPHILS ABSOLUTE AUTO 0.21 K/uL (0.00-0.40); EOSINOPHILS PERCENT AUTO 2.2 % (0.0-5.4); HEMATOCRIT 37.5 % (38.4-49.7); HEMOGLOBIN 12.7 g/dL (12.9-16.9); IMMATURE GRAN ABSOLUTE AUTO 0.13 K/uL (0.00-0.23); IMMATURE GRAN PERCENT AUTO 1.3 % (0.0-0.7); LYMPHOCYTES ABSOLUTE AUTO 3.76 K/uL (0.8-3.3); LYMPHOCYTES PERCENT AUTO 38.9 % (11.4-47.7); MEAN CORPUSCULAR HEMOGLOBIN 27.5 pg (31.6-35.5); MEAN CORPUSCULAR HGB CONC 33.9 g/dL (31.6-35.5); MEAN CORPUSCULAR VOLUME 81.3 fL (81.4-99.0); MONOCYTES ABSOLUTE AUTO 0.71 K/uL (0.20-0.90); MONOCYTES PERCENT AUTO 7.3 % (3.3-12.6); NEUTROPHILS ABSOLUTE AUTO 4.73 K/uL (1.0-7.6); NEUTROPHILS PERCENT AUTO 49.1 % (40.0-78.1); PLATELET COUNT,PLT 208 K/uL (130-375); RED BLOOD CELL COUNT 4.61 M/uL (4.14-5.76); WHITE BLOOD CELL COUNT,WBC 9.7 K/uL (3.2-11.0)
[2023-03-01] MEDS ORDERED: Sodium Chloride 0.9% 1,000 ML IV ONE (05:30)
[2023-03-01] MEDS ORDERED: Iopamidol 755 Mg/ML 100 ML Bottle IV STA (05:37)
[2023-03-01] MEDS ORDERED: Sodium Chloride 0.9% 10 ML Syringe FLUSH STA (05:38)
[2023-03-01] MEDS ORDERED: Sodium Chloride 0.9% 100 ML IV SCH (05:45)
[2023-03-01 05:49] LABS: BLOOD UREA NITROGEN,BUN 18 mg/dL (7-18); CARBON DIOXIDE,CO2 22 mmol/L (21-32); CHLORIDE,CL 104 mmol/L (100-108); CREATININE 1.3 mg/dL (0.8-1.3); EST CRCL DRUG DOSING (CG) 47.59 mL/min; ESTIMATED GFR 57 mL/min (>60); GLUCOSE RANDOM 106 mg/dL (74-106); POTASSIUM,K 3.4 mmol/L (3.6-5.2); SODIUM,NA 143 mmol/L (140-148)
[2023-03-01 05:51] LABS: ANION GAP 20.4 mmol/L (5.0-14.0)
[2023-03-01 05:52] LABS: C-REACTIVE PROTEIN < 0.50 mg/dL (<0.50); CALCIUM 6.6 mg/dL (8.5-10.1)
[2023-03-01] MEDS ORDERED: Calcium Gluconate 10% 1 GM/10 ML SDV IVPUSH ONE (05:54)
[2023-03-01] MEDS ORDERED: Calcium Carbonate 500 MG Tab.Chew PO ONE (05:54)
[2023-03-01 06:00] LABS: APPEARANCE,URINE CLEAR (CLEAR); BILIRUBIN,URINE NEGATIVE (NEGATIVE); COLOR,URINE YELLOW (YELLOW); GLUCOSE,URINE NEGATIVE (NEGATIVE); KETONES,URINE NEGATIVE (NEGATIVE); LEUKOCYTE ESTERASE,URINE NEGATIVE (NEGATIVE); NITRITE,URINE NEGATIVE (NEGATIVE); OCCULT BLOOD,URINE TRACE-INTACT (NEGATIVE); PROTEIN,URINE NEGATIVE (NEGATIVE); UROBILINOGEN,URINE 0.2 EU/dL (0.2-1.0)
[2023-03-01 06:11] LABS: AMORPHOUS SEDIMENT,URINE NOT SEEN; BACTERIA,URINE RARE; EPITHELIAL CELLS,URINE RARE; MUCUS,URINE RARE; RBC,URINE 0-5 (0-5); WBC,URINE 0-5 (0-5)
[2023-03-01 06:14] LABS: A/G RATIO 1.1 (1.2-2.2); ALBUMIN 3.1 g/dL (3.4-5.0); BILIRUBIN DIRECT 0.18 mg/dL (0.0-0.2); BILIRUBIN INDIRECT 0.52; BILIRUBIN TOTAL 0.7 mg/dL (0.2-1.0); PROTEIN TOTAL,TP 5.9 g/dL (6.4-8.2)
[2023-03-01] MEDS ORDERED: Sodium Chloride 0.9% 50 ML IV STA (06:18)
[2023-03-01] MEDS ORDERED: Ondansetron 4 MG/2 ML SDV IVPUSH ONE (06:18)
[2023-03-01] MEDS ORDERED: Iopamidol 612 MG/ML 100 ML Bottle IV STA (06:18)
[2023-03-01] MEDS ORDERED: Aspirin 325 MG Tab.EC PO ONE ×2 (11:18→11:19)
[2023-03-01 11:26] VITALS: BP 165/77; PULSE 79
== END 2023-03-01 11:40 | disposition other institution (70) ==
LOC: JP.ED 04:48
DX: G40.909 Epilepsy, unspecified, not intractable, without status epilepticus (principal); E83.51 Hypocalcemia; R59.1 Generalized enlarged lymph nodes; E78.00 Pure hypercholesterolemia, unspecified; I10 Essential (primary) hypertension; K21.9 Gastro-esophageal reflux disease without esophagitis; Z86.73 Personal history of transient ischemic attack (TIA), and cerebral infarction without residual deficits; Z79.899 Other long term (current) drug therapy; Z79.82 Long term (current) use of aspirin
CPT/HCPCS: 36415; 70450; 70496; 70498; 71250; 74176; 80048; 80076; 81001; 82550; 83605; 85025; 86140; 93005; 96361; 96374; 96375; 99285; A9270; J0612; J2405; J3490; J7030; Q9967